=== PATIENT | female | born 1975 | race Caucasian/White ===

== ENCOUNTER → 2020-10-11 13:34 | Outpatient (BNVA) | payer SELFPAY | PROVIDERS: PCP Family Medicine; Referring Provider Family Medicine; Visit Provider Nurse Practitioner Family | DX: N39.9 Disorder of urinary system, unspecified (principal); R31.9 Hematuria, unspecified; R31.21 Asymptomatic microscopic hematuria; R31.29 Other microscopic hematuria; N39.0 Urinary tract infection, site not specified; Z20.822 Contact with and (suspected) exposure to COVID-19 | CPT/HCPCS: 81003; 87086; 87635; 88112 ==

== ENCOUNTER 2020-10-18 06:28 | Day surgery (SDC) | payer SELFPAY ==
[2020-10-15 10:48] VITALS: BMI 27.4
[2020-10-18 06:46] VITALS: BP 102/79; PULSE 68; RESP 18; TEMP 36.2; O2SAT 98
[2020-10-18] MEDS: sodium chloride 0.9% 1,000 ML 30 ML IV (06:54)
[2020-10-18 07:12] LABS: OR HCG Qualitative Urine Negative (Negative)
--- NOTE | 2020-10-18 07:17 | W.PM.OPSUD ---
Surgery/Procedure H&P Update DATE OF PROCEDURE: October 18, 2020 DATE H&P PERFORMED: 09/24/20 H&P UPDATE INFORMATION: I have reviewed H&P completed within last 30 days, I have examined patient prior to procedure and No changes to prior documentation PREOP DIAGNOSIS: Family history of colon cancer/occult blood in stool PRIMARY INDICATION FOR PROCEDURE: The same PLANNED PROCEDURE: Operation Date: 10/18/20 07:30 Proposed Procedures p EGD/colon 07414 [id number] R19.5 K21.9(Not Applicable) - Enrique Pedroza MD s Colonoscopy(Not Applicable) - Enrique Pedroza MD
--- NOTE | 2020-10-18 07:19 | ANES.PREANE2 ---
Pre-Anesthetic Assessment Pre-Anesthetic Assessment: Height/Weight: Height 1.65 m Weight 74.843 kg Temp Pulse Resp BP Pulse Ox 97.1 F L 68 18 102/79 98 10/18/20 06:46 10/18/20 06:46 10/18/20 06:46 10/18/20 06:46 10/18/20 06:46 Preop Diagnosis: Family history of colon cancer/occult blood in stool Proposed Procedure: Operation Date: 10/18/20 07:30 Proposed Procedures p EGD/colon [id number] R19.5 K21.9(Not Applicable) - Enrique Pedroza MD s Colonoscopy(Not Applicable) - Enrique Pedroza MD Last intake: Intake Last Liquid Date 10/17/20 Last Liquid Time 23:00 Last Solid Date 10/16/20 Last Solid Time 19:00 Social: Social History: Tobacco Packs per day: 1 Exam: Pre-Anes Outpt Exam: alert and oriented x 3 Pulmonary: Pulmonary: None reported CV/HEM: CV/HEM: Anemia : Comments: kidney tumor Hepatic: Hepatic: None reported GI: GI: GERD Metabolic: Metabolic: Morbid obesity Musc/skel: Musc/skel: None reported Neuropsych: Neuropsych: Anxiety Anesthetic Plan: ASA status: 2 Anesthesia: MAC Risk of > 500 ml blood loss (7ml/kg in children): No Meds/Allergies Current Medications: Current Medications Generic Name Dose Route Start Last Admin Trade Name Freq PRN Reason Stop Dose Admin Sodium Chloride 1,000 mls @ 30 ml s/hr 10/18/20 06:45 10/18/20 06:54 Sodium Chloride 0.9% IV 10/19/20 06:44 30 mls/hr .Q24H ESTHER Administration PFSH Anesthesia PFSH: Medical History Microscopic hematuria Recurrent UTI Family History Mother Hypertension Alcoholism Diabetes Father Alcoholism Sister Alcoholism Grandfather Cancer colon cancer Denies family history of Anesthesia complication Bleeding disorder Social History Smoking and tobacco status: current every day smoker cigarettes Packs smoked per day: 1 Years cigarettes smoked: 30 Alcohol intake: never Marital status: Legally Current occupational status: unemployed History of recent travel: No Data Anesthesia Other Labs: Laboratory Results - last 48 hr 10/18/20 07:05 Urine HCG, Qual Negative Cardiac Studies: No Data to Display
[2020-10-18 08:06] VITALS: BP 96/90; PULSE 73; RESP 18; TEMP 36.1; O2SAT 99
[2020-10-18 08:18] VITALS: BP 105/71; PULSE 68; RESP 18; O2SAT 99
--- NOTE | 2020-10-18 10:39 | ANES.PREANE2 ---
Pre-Anesthetic Assessment Pre-Anesthetic Assessment: Height/Weight: Height 1.65 m Weight 74.843 kg Temp Pulse Resp BP Pulse Ox 97.0 F L 68 18 105/71 99 10/18/20 08:06 10/18/20 08:18 10/18/20 08:18 10/18/20 08:18 10/18/20 08:18 Preop Diagnosis: Family history of colon cancer/occult blood in stool Proposed Procedure: Operation Date: 10/18/20 07:30 Proposed Procedures p EGD/colon [id number] R19.5 K21.9(Not Applicable) - Enrique Pedroza MD s Colonoscopy(Not Applicable) - Enrique Pedroza MD Last intake: Intake Last Liquid Date 10/17/20 Last Liquid Time 23:00 Last Solid Date 10/16/20 Last Solid Time 19:00 Social: Social History: Tobacco and No alcohol Exam: Pre-Anes Outpt Exam: alert and oriented x 3 Airway: Submandibular: WNL Cervical ROM: WNL MP: 1 History/ROS: No significant history except as noted GI: GI: GERD Anesthetic Plan: ASA status: 2 Anesthesia: Anesthesia Evaluation and MAC Risk of > 500 ml blood loss (7ml/kg in children): No PFSH Anesthesia PFSH: Medical History (Updated 10/18/20 @ 08:06 by Enrique Pedroza MD) Colon polyp Microscopic hematuria Recurrent UTI Family History Mother Hypertension Alcoholism Diabetes Father Alcoholism Sister Alcoholism Grandfather Cancer colon cancer Denies family history of Anesthesia complication Bleeding disorder Social History Smoking and tobacco status: current every day smoker cigarettes Packs smoked per day: 1 Years cigarettes smoked: 30 Alcohol intake: never Marital status: Legally Current occupational status: unemployed History of recent travel: No Data Anesthesia Other Labs: Laboratory Results - last 48 hr 10/18/20 07:05 Urine HCG, Qual Negative Cardiac Studies: No Data to Display
--- NOTE | 2020-10-18 13:09 | ANE.PACU2 ---
Inpatient post-anesthesia follow up: Airway intact: Yes Vital signs: Temperature 97.0 F Pulse Rate 68 Respiratory Rate 18 Blood Pressure 105/71 Pulse Oximetry 99 Oxygen Delivery Me thod Room Air Oxygen Flow Rate Fraction of Inspir ed Oxygen Hydration adequate: Yes Nausea and vomiting: No Pain level: 1 Mental status: Baseline
[2020-10-19 14:43] LABS: H. Pylori / CLO Test Negative
== END 2020-10-18 08:32 | disposition home or self-care (01) ==
PROVIDERS: PCP Family Medicine; Visit Provider Surgery
PROC: 0DJD8ZZ Inspection of Lower Intestinal Tract, Via Natural or Artificial Opening Endoscopic (ICD-10-PCS; CPT 45378; 2020-10-18 07:30)
PROC: 0DJ08ZZ Inspection of Upper Intestinal Tract, Via Natural or Artificial Opening Endoscopic (ICD-10-PCS; CPT 43235; 2020-10-18 07:30)
DX: K92.1 Melena (principal); Z80.0 Family history of malignant neoplasm of digestive organs; K21.00 Gastro-esophageal reflux disease with esophagitis, without bleeding; K29.70 Gastritis, unspecified, without bleeding; K29.80 Duodenitis without bleeding; D12.2 Benign neoplasm of ascending colon; F17.210 Nicotine dependence, cigarettes, uncomplicated; D64.9 Anemia, unspecified
CPT/HCPCS: 43239; 45385; 81025; 84703; 87077; 88305; 96360; J2704; J7030

== ENCOUNTER 2020-10-24 09:01 | Outpatient (CLI) | payer SELFPAY ==
[2020-10-24] MEDS: iodixanol 320 mg/mL 100mL Btl IV (09:30)
--- NOTE | 2020-10-24 10:30 | CT_ITS ---
WS: [id number] CT ABDOMEN AND PELVIS WITH AND WITHOUT CONTRAST HISTORY: MICROSCOPIC HEMATURIA TECHNIQUE: Unenhanced 5 mm axial imaging first performed through the abdomen. Post contrast imaging t hrough the abdomen and pelvis. Oral contrast has not been provided. Sagittal and coronal reformats a re submitted. All CT scans at [facility] use at least one of these dose optimization tech niques: automated exposure control; mA and/or kV adjustment per patient size (includes targeted exams where dose is matched to clinical indication); or iterative reconstruction. CONTRAST: Visipaque 320; 95 mL IV. DLP: 2412.8 mGy.cm COMPARISON: None available. Lung bases are clear. No cardiomegaly or hiatal hernia. Mild hepatomegaly. Liver measures 16.6 cm in length. No mass or bile duct dilatation. Gallbladder con tains foci suspicious for cholelithiasis. Spleen, pancreas and adrenal glands are normal. Very minima l atherosclerosis within the aorta. RIGHT kidney: 9.1 cm in length. Multifocal areas of cortical thinning and scarring. 2 mm nonobstructi ng calcification in the superior kidney and an area of scarring. No renal obstruction or solid mass. Ureter is normal size. No uroepithelial filling defects. LEFT kidney: 11.2 cm in length. No renal calcification or obstruction. No solid mass. No uroepithelia l filling defect. No ascites or adenopathy. The appendix is normal. No GI tract obstruction. Normal size anteverted [place]. Urinary bladder is well-distended on delayed imaging with no filling defects. Mild diastases of the rectus abdominis muscles. No osteoblastic or osteolytic bone disease. CT/CT abdomen pelvis wo/w [id number] IMPRESSION: 1. No renal or ureteral calcifications or obstruction. No renal mass. 2. Multifocal areas of scarring and cortical defects involving the RIGHT kidne y with mild atrophy. 3. Normal appendix. 4. Mild hepatic steatosis. 5. Suspicious for cholelithiasis without acute cholecystitis.
== END 2020-10-24 09:02 | disposition home or self-care (01) ==
LOC: CT 09:04
PROVIDERS: PCP Family Medicine; Visit Provider Nurse Practitioner Family
DX: R31.29 Other microscopic hematuria (principal); K76.0 Fatty (change of) liver, not elsewhere classified
CPT/HCPCS: 74178; 81003

== ENCOUNTER 2020-11-06 16:24 | Inpatient (IN) | payer OTHER, SELFPAY ==
[2020-11-06] VITALS (59 sets, daily range): BP systolic 91–144; BP diastolic 55–93; PULSE 69–122; RESP 19–28; TEMP 37.1; O2SAT 89–96; BMI 28.3
--- NOTE | 2020-11-06 16:33 | XRR_ITS ---
PROCEDURE INFORMATION: Exam: XR Chest Exam date and time: 11/06/2020 4:39 PM Age: 45 years old Clinical indication: Dyspnea and shortness of breath; Additional info: Dyspnea/cough TECHNIQUE: Imaging protocol: XR of the chest. Views: 1 view. COMPARISON: No relevant prior studies available. FINDINGS: Lungs: Diffuse reticulonodular interstitial changes and scattered alveolar ground-glass opacities are nonspecific. Pleural spaces: Unremarkable. No pleural effusion. No pneumothorax. Heart/Mediastinum: Unremarkable. No cardiomegaly. Bones/joints: Unremarkable. XR/XR chest 1V portable [id number] IMPRESSION: Widespread nonspecific airspace disease. Atypical pneumonia included in the differential.
--- NOTE | 2020-11-06 16:35 | ED_ITS ---
HPI - SOB/Dyspnea General: Chief Complaint: Shortness of Breath/Dyspnea Stated Complaint: Trouble Breathing Time Seen by Provider: 11/06/20 16:25 History of Present Illness: HPI Narrative: 45-year-old female comes in complaining of shortness of breath and chest pain. She is hyperventilating on arrival here. She is complaining of central chest pain substernal without radiation. She tells me she has actually had this for several days ago worse this afternoon. She had been treated at per her report with steroids and antibiotics with no improvement but it has not been like this prior. No leg swelling no recent long trips no history of DVT or PE. MD elicited complaint: shortness of breath, cough and chest pain Pertinent past history: COPD Onset (ago): day(s) Timing: constant Severity: moderate Exacerbating factors: exertion and coughing Relieving factors: oxygen, rest and bronchodilators Known history of: COPD Associated symptoms: Reports chest congestion and chest pain; Deny abdominal pain, cough, diaphoresis, dizziness, extremity pain, fever(s), hemoptysis, lightheadedness, myalgias, nausea, orthopnea, palpitations, paresthesias, polydipsia, polyuria, rash, sense of impending doom, syncope or vomiting Treatment prior to arrival: oxygen and bronchodilator Review of Systems Const: Denies: fever(s) or diaphoresis ENMT: Denies: throat pain, ear or mastoid pain, nasal discharge or nasal congestion Card: Reports: chest pain; Denies: palpitations, lightheadedness, syncope or orthopnea Resp: Reports: chest congestion; Denies: hemoptysis GI: Denies: abdominal pain, nausea or vomiting : Denies: flank pain, difficulty voiding, dysuria, urinary frequency or urinary urgency Musc: Denies: extremity pain Skin/Breast: Denies: rash or pruritus Neuro: Denies: dizziness Endo: Denies: polyuria or polydipsia PFSH ED PFSH: Medical History Colon polyp Gastritis and duodenitis Microscopic hematuria Recurrent UTI Family History Mother Hypertension Alcoholism Diabetes Father Alcoholism Sister Alcoholism Grandfather Cancer colon cancer Denies family history of Anesthesia complication Bleeding disorder Social History Smoking and tobacco status: current every day smoker cigarettes Packs smoked per day: 1 Years cigarettes smoked: 30 Alcohol intake: never Marital status: Legally Current occupational status: unemployed History of recent travel: No Physical Exam Const: COMMON NORMALS: no acute distress GENERAL APPEARANCE: cooperative and comfortable ORIENTATION/CONSCIOUSNESS: Yes awake, Yes oriented to person, Yes oriented to place and Yes oriented to time HENMT: COMMON NORMALS: normocephalic, atraumatic and hearing grossly normal bilaterally HEAD & SCALP: normocephalic and atraumatic Eye: COMMON NORMALS: Equal, round and reactive pupils present, EOMs intact bilaterally, conjunctivae normal and no scleral icterus CONJUNCTIVA: Yes conjunctivae normal PUPIL: Yes Equal, round and reactive pupils present Neck/C-Spine: COMMON NORMALS: full ROM, no lymphadenopathy, supple and no JVD Resp: COMMON NORMALS: normal respiratory effort, No retractions, No use of accessory muscles and clear to auscultation bilaterally AUSCULTATION: clear to auscultation bilaterally Cardio: COMMON NORMALS: no JVD, regular rate, regular rhythm and No murmurs present (Cardio) RATE: regular rate RHYTHM: regular rhythm GI: COMMON NORMALS: Soft to palpation and No hepatosplenomegaly present AUSCULTATION: Yes normoactive bowel sounds PALPATION: Yes Soft to palpation, No Tenderness to palpation present (GI), No Guarding due to palpation present (GI) and Yes No hepatosplenomegaly present Extremity: COMMON NORMALS: normal to inspection, capillary refill normal, no clubbing, cyanosis or edema, no calf tenderness and no pedal edema Neuro: SENSORIUM/ORIENTATION: Yes oriented to person, Yes oriented to place and Yes oriented to time Skin: COMMON NORMALS: no rashes or lesions noted GENERAL SKIN EXAM: no rashes or lesions noted Course Vital Signs: Vital signs: Vital Signs Temperature 99.4 F 11/09/20 16:00 Pulse Rate 88 11/09/20 16:00 Respiratory Rate 20 H 11/09/20 16:00 Blood Pressure 116/71 11/09/20 16:00 Pulse Oximetry 85 L 11/09/20 16:00 MDM - SOB/Dyspnea MDM Narrative: Medical decision making narrative: Exacerbation COPD with pneumonia. Will start on antibiotics admit pulmonary toilet discussed with hospitalist. Lab Data: Labs: Lab Results 11/06/20 11/06/20 11/06/20 Range/Units 16:40 16:40 16:40 WBC 17.0 H (4.0-10.0) 10^3/ uL RBC 4.61 (4.1-5.3) 10^6/u L Hgb 12.8 (11.5-15.3) g/dL Hct 39.5 (37.0-47.0) % MCV 85.7 (81-99) fL MCH 27.8 L (28.0-34.0) pg MCHC 32.4 (30.0-36.0) g/dL RDW 12.7 (12.1-15.1) % Plt Count 499 H (130-400) 10^3/c mm MPV 9.3 (7.4-10.4) fL Neut % (Auto) 82.0 % Lymph % (Auto) 9.9 % [place] % (Auto) 7.4 % Eos % (Auto) 0.1 % Baso % (Auto) 0.2 % Neut # (Auto) 13.93 H (1.8-7.7) 10^3/u L Lymph # (Auto) 1.7 (0.8-4.8) 10^3/u L [place] # (Auto) 1.3 H (0.2-0.9) 10^3/u L Eos # (Auto) 0.0 (0.0-0.8) 10^3/u L Baso # (Auto) 0.0 (0.0-0.1) 10^3/u L Nucleated RBC % (a uto) 0 % Nucleated RBCs # 0.0 /100WBC Specimen Type Sample Site ABG pH (7.35-7.45) ABG pCO2 (35-45) mmHg ABG pO2 (80.0-100.0) mmH g ABG HCO3 (22-26) mmol/L ABG O2 Saturation ABG Base Excess (-2.0-2.0) mmol/ L Deznel Test A-a O2 Gradient (5-10) mmHg Hematocrit (37-47) % Hgb O2 Saturation (95-100) % Carboxyhemoglobin (0.4-20.1) %THgb Methemoglobin (0.4-1.5) % Total Hemoglobin (12-16) g/dL Ionized Calcium (1.1-1.4) mmol/L O2 Delivery Device O2 Liters/Min % FiO2 % Display Director ID Sodium 129 L (136-145) mmol/L Potassium 4.0 (3.5-5.1) mmol/L Chloride 94 L (98-107) mmol/L Carbon Dioxide 20 L (22-29) mmol/L Anion Gap 19.0 (5-19) BUN 6 (6-20) mg/dL Creatinine 0.9 (0.5-0.9) mg/dL GFR Calculation 67.1 L (90-130) mL/min Glucose 148 H (65-115) mg/dL Calculated Osmolal ity 268 L (285-295) mOsm/k g Calcium 8.5 (8.5-10.5) mg/dL Total Bilirubin 0.4 (0.15-1.2) mg/dL AST 39 H (0-32) U/L ALT 38 H (0-33) U/L Alkaline Phosphata se 132 H (35-105) IU/L Troponin T Baselin e 8 (0-10) ng/L Total Protein 6.9 (6.6-8.7) g/dL Albumin 3.7 (3.5-5.2) g/dL Globulin 3.2 (1.3-4.6) g/dL Urine Color (Yellow) Urine Appearance (CLEAR) Urine pH (5-7) Ur Specific Gravit y (1.005-1.030) Urine Protein (Negative) Urine Glucose (UA) (Normal) Urine Ketones (Negative) Urine Blood (Negative) Urine Nitrate (Negative) Urine Bilirubin (Negative) Urine Urobilinogen (Negative) mg/dL Ur Leukocyte Maile ase (Negative) Urine RBC (0-2) /hpf Urine WBC (0-5) /hpf Ur Squamous Epith Cells (0-5) /hpf Amorphous Sediment Urine Bacteria (NONE) /hpf SARS-CoV-2 Ag (Rap id) (Negative) 11/06/20 11/06/20 11/06/20 Range/Units 17:13 17:21 18:01 WBC (4.0-10.0) 10^3/ uL RBC (4.1-5.3) 10^6/u L Hgb (11.5-15.3) g/dL Hct (37.0-47.0) % MCV (81-99) fL MCH (28.0-34.0) pg MCHC (30.0-36.0) g/dL RDW (12.1-15.1) % Plt Count (130-400) 10^3/c mm MPV (7.4-10.4) fL Neut % (Auto) % Lymph % (Auto) % [place] % (Auto) % Eos % (Auto) % Baso % (Auto) % Neut # (Auto) (1.8-7.7) 10^3/u L Lymph # (Auto) (0.8-4.8) 10^3/u L [place] # (Auto) (0.2-0.9) 10^3/u L Eos # (Auto) (0.0-0.8) 10^3/u L Baso # (Auto) (0.0-0.1) 10^3/u L Nucleated RBC % (a uto) % Nucleated RBCs # /100WBC Specimen Type Arterial Sample Site Radial, right ABG pH 7.38 (7.35-7.45) ABG pCO2 40.5 (35-45) mmHg ABG pO2 68.8 L (80.0-100.0) mmH g ABG HCO3 23.8 (22-26) mmol/L ABG O2 Saturation 94.1 ABG Base Excess -1.3 (-2.0-2.0) mmol/ L Denzel Test Pos A-a O2 Gradient 18.1 H (5-10) mmHg Hematocrit 38.3 (37-47) % Hgb O2 Saturation 90.8 L (95-100) % Carboxyhemoglobin 2.5 (0.4-20.1) %THgb Methemoglobin 1.1 (0.4-1.5) % Total Hemoglobin 12.5 (12-16) g/dL Ionized Calcium 1.2 (1.1-1.4) mmol/L O2 Delivery Device Nc O2 Liters/Min 4.0 % FiO2 36.0 % Display Director ID Ed Sodium 130.0 L (136-145) mmol/L Potassium 3.7 (3.5-5.1) mmol/L Chloride (98-107) mmol/L Carbon Dioxide (22-29) mmol/L Anion Gap (5-19) BUN (6-20) mg/dL Creatinine (0.5-0.9) mg/dL GFR Calculation (90-130) mL/min Glucose 103.0 (65-115) mg/dL Calculated Osmolal ity (285-295) mOsm/k g Calcium (8.5-10.5) mg/dL Total Bilirubin (0.15-1.2) mg/dL AST (0-32) U/L ALT (0-33) U/L Alkaline Phosphata se (35-105) IU/L Troponin T Baselin e (0-10) ng/L Total Protein (6.6-8.7) g/dL Albumin (3.5-5.2) g/dL Globulin (1.3-4.6) g/dL Urine Color Yellow (Yellow) Urine Appearance Clear (CLEAR) Urine pH 6.5 (5-7) Ur Specific Gravit y 1.000 L (1.005-1.030) Urine Protein Trace (Negative) Urine Glucose (UA) Norm (Normal) Urine Ketones Negative (Negative) Urine Blood 2+ H (Negative) Urine Nitrate Negative (Negative) Urine Bilirubin Neg (Negative) Urine Urobilinogen 1 H (Negative) mg/dL Ur Leukocyte Maile ase Negative (Negative) Urine RBC 5-10 H (0-2) /hpf Urine WBC 0-4 H (0-5) /hpf Ur Squamous Epith Cells 0-4 H (0-5) /hpf Amorphous Sediment Not Reportable Urine Bacteria Trace (NONE) /hpf SARS-CoV-2 Ag (Rap id) Negative (Negative) Discharge Plan Discharge Admit Provider: Charlie Tyler Clinical Impression: Pneumonia, Respiratory failure with hypoxia Condition: Stable Coding Level of Care Code ED Physician Compensation Analyst for Chikis Henning
--- NOTE | 2020-11-06 16:37 | CTR_ITS ---
PROCEDURE INFORMATION: Exam: CTA Chest With Contrast Exam date and time: 11/06/2020 4:50 PM Age: 45 years old Clinical indication: Shortness of breath; Patient HX: Best images possible. PT won't stop coughing, thrashing her legs and talking. ; Additional info: Chest pain dyspnea TECHNIQUE: Imaging protocol: Computed tomographic angiography of the chest with contrast. 3D rendering (Not supervised by radiologist): MIP and/or 3D reconstructed images were created by the technologist. Radiation optimization: All CT scans at this facility use at least one of these dose optimization techniques: automated exposure control; mA and/or kV adjustment per patient size (includes targeted exams where dose is matched to clinical indication); or iterative reconstruction. Contrast material: VISI 320; Contrast volume: 95 ml; Contrast route: INTRAVENOUS (IV); COMPARISON: CR XR chest 1V portable [id number] 11/06/2020 4:37 PM RADIATION DOSE METRICS: Total DLP (mGy-cm): 569.6 FINDINGS: Limitations: Extensive motion distortion artifact precludes adequate assessment of the pulmonary arteries. Cannot accurately evaluate arteries in the lobar, segmental, subsegmental areas. Pulmonary arteries: There is no thrombus in the main pulmonary artery, left or right pulmonary artery but otherwise nondiagnostic evaluation. Aorta: Unremarkable. No aortic aneurysm. No aortic dissection. Lungs: Extensive irregular scattered ground-glass airspace opacities in both lungs mostly central in distribution, however some subpleural involvement is noted peripherally. No focal endobronchial lesion. No bronchial wall thickening. Pleural spaces: Unremarkable. No pneumothorax. No pleural effusion. Heart: Unremarkable. No cardiomegaly. No pericardial effusion. Lymph nodes: Unremarkable. No enlarged lymph nodes. Bones/joints: Limited characterization of osseous structures with no obvious acute findings or suspicious bone lesion. Soft tissues: Unremarkable. CT/CT angio chest PE protcl [id number] IMPRESSION: 1. Very suboptimal, mostly nondiagnostic characterization of pulmonary arteries. 2. No obvious central pulmonary embolism. 3. Scattered ground-glass airspace disease in both lungs. Nonspecific pattern and distribution. Differential diagnosis is broad. 4. Imaging features can be seen with COVID-19 pneumonia, though are nonspecific and can occur with a variety of infectious and noninfectious processes. (Reference: Federico) REFERENCES: Federico Blanchard, et al., Radiological Society of [place] Expert Consensus Statement on Reporting Chest CT Findings Related to COVID-19. Endorsed by the Society of Thoracic Radiology, the [place] [employer], and RSNA. Published September 21, 2019. Radiation Dose CTDIVOL = (mGy): DLP = 569.6 (mGy-cm)
--- NOTE | 2020-11-06 16:38 | ECG_ITS ---
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 Measurements Intervals [place] Rate: 114 P: 52 SD: 135 QRS: 55 QRSD: 78 T: 70 QT: 294 QTc: 405 Interpretive Statements SINUS TACHYCARDIA POSSIBLE RIGHT VENTRICULAR CONDUCTION DELAY [RSR (QR) IN V1/V2] ABNORMAL RHYTHM ECG No previous ECG available for comparison Electronically Signed On 11-06-2020 19:23:38 CDT by Suhas Solis M.D. [email or web address]
[2020-11-06 16:48] LABS: Basophils % 0.2 %; Eosinophils % 0.1 %; Hematocrit 39.5 % (37.0-47.0); Hemoglobin 12.8 g/dL (11.5-15.3); Lymphocytes # 1.7 10^3/uL (0.8-4.8); Lymphocytes % 9.9 %; Mean Corpuscular HGB Conc 32.4 g/dL (30.0-36.0); Mean Corpuscular Hemoglobin 27.8 pg (28.0-34.0); Mean Corpuscular Volume 85.7 fL (81-99); Mean Platelet Volume 9.3 fL (7.4-10.4); Monocytes # 1.3 10^3/uL (0.2-0.9); Monocytes % 7.4 %; Neutrophils # 13.93 10^3/uL (1.8-7.7); Nucleated Red Blood Cells % 0 %; Platelet Count 499 10^3/cmm (130-400); Red Blood Count 4.61 10^6/uL (4.1-5.3); Red Cell Distribution Width 12.7 % (12.1-15.1)
[2020-11-06] MEDS: morphine 4 mg/mL SDV 1 mL IVP (16:51)
[2020-11-06] MEDS: LORazepam 2 mg/mL INJ 1 mL IVP (16:52)
[2020-11-06] MEDS: enoxaparin 80 mg/0.8 mL Syringe 70 MG SUBCUT (16:52)
[2020-11-06] MEDS: iohexol 350 mg/mL 100 mL Btl IV (17:08)
[2020-11-06 17:23] LABS: ABG PCO2 40.5 mmHg (35-45); ABG PH Result 7.38 (7.35-7.45); Alveolar-Arterial Oxygen Gradi 18.1 mmHg (5-10); Arterial Blood Gas Hematocrit 38.3 % (37-47); Base Excess ABG -1.3 mmol/L (-2.0-2.0); Blood Gas Allen Test Pos; Blood Gas Operator Identificat ED; Blood Gas Sample Site Radial, right; Blood Gas Sample Type Arterial; Carboxyhemoglobin 2.5 %THgb (0.4-20.1); HCO3 ABG 23.8 mmol/L (22-26); HGB O2 Sat 90.8 % (95-100); Ionized Calcium Level - ABG 1.2 mmol/L (1.1-1.4); Methemoglobin 1.1 % (0.4-1.5); Oxygen Device NC; Oxygen Saturation ABG 94.1; PO2 ABG 68.8 mmHg (80.0-100.0); Potassium Level - ABG 3.7 mmol/L (3.5-5.0); Total Hemoglobin 12.5 g/dL (12-16)
[2020-11-06 17:52] LABS: Alanine Aminotransferase 38 U/L (0-33); Albumin Level 3.7 g/dL (3.5-5.2); Alkaline Phosphatase 132 IU/L (35-105); Aspartate Amino Transferase 39 U/L (0-32); Blood Urea Nitrogen 6 mg/dL (6-20); Calcium 8.5 mg/dL (8.5-10.5); Carbon Dioxide 20 mmol/L (22-29); Chloride 94 mmol/L (98-107); Globulin 3.2 g/dL (1.3-4.6); Glomerular Filtration Rate 67.1 mL/min (90-130); Glucose 148 mg/dL (65-115); Osmolality Calculated 268 mOsm/kg (285-295); Sodium 129 mmol/L (136-145); Total Bilirubin 0.4 mg/dL (0.15-1.2); Total Protein 6.9 g/dL (6.6-8.7)
[2020-11-06 17:53] LABS: SARS Covid-2 Antigen Negative (Negative)
[2020-11-06 17:53] LABS: Troponin(5th) Baseline 8 ng/L (0-10)
[2020-11-06] MEDS: cefTRIAXone 2,000 MG in sodium chloride 0.9% (plus) 50 ML 100 MG IV (18:09)
[2020-11-06] MEDS: dexamethasone 10 mg/mL INJ IVP (18:12)
[2020-11-06 18:25] LABS: Urine Appearance Clear (CLEAR); Urine Color Yellow (Yellow)
[2020-11-06 18:26] LABS: Add Urine Microscopic? YES; Bacteria Urine TRACE /hpf; Bilirubin Urine Neg (Negative); Blood Urine 2+ (Negative); Glucose Urine UA Norm (Normal); Ketones Urine Negative (Negative); Leukocyte Esterase Urine Negative (Negative); Nitrate Urine Negative (Negative); Protein Urine Trace (Negative); Squamous Epithelial Cell Urine 0-4 /hpf (0-5); Urobilinogen Urine 1 mg/dL (Negative); WBC Urine 0-4 /hpf (0-5); pH Urine 6.5 (5-7)
--- NOTE | 2020-11-06 18:31 | P.HP_ITS ---
Providers/Chief Complaint Admitting Physician: Charlie Tyler MD Primary Care Provider: Rodolfo Pena MD Chief Complaint: Trouble Breathing History of Present Illness Camila Menendez is a 45 year old female with no significant past medical history came in with chief complaint of worsening shortness of breath as well as central substernal chest pain without radiation going on for several days, history taking was done by ER chart review, as the patient was deeply sedated since he had gotten Ativan as well as morphine in the ER. Upon arrival in the ER: She was worked up for above-mentioned complaint: Imaging studies: CTA chest with contrast: No pulmonary embolism, Scattered ground-glass airspace disease in both lungs. EKG: SINUS TACHYCARDIA. ABG: pH:7.38, PCO2: 40, PO2 : 68, FiO2:36 % Pertinent labs: WBC:17 thousand, H&H:12/39, platelet count:499 , serum sodium:129, lactic acid:1.8 , Troponin T: Baseline:8 , 2-hour:7.17, 2-hour delta: -0.83 , urinalysis: Clean, U tox: Pending Rapid Covid antigen: Negative, RT-PCR: Was negative on 10/11 ECA medications: Ceftriaxone and azithromycin, dexamethasone 10 mg IV one-time dose. Lovenox 70 mg subcu x1 dose Review of Systems Narrative: Could not be obtained Medications/Allergies Home Medications Medication Instructions Recorded Confirmed Last Taken Type pantoprazole 40 mg tablet,delayed 40 mg PO QAM 09/24/20 11/06/20 11/06/20 07:30 History release hydroxyzine pamoate 25 mg capsule 25 mg PO Q4H PRN 10/24/20 11/06/20 Unknown History sulfamethoxazole 800 1 tab PO BID #28 tab 10/24/20 11/06/20 11/06/20 07:30 Rx mg-trimethoprim 160 mg tablet gabapentin 300 mg capsule 600 mg PO TID cap 10/25/20 11/06/20 11/06/20 07:30 History Dayquil Tab 1 - 2 tab PO PRN 11/06/20 11/06/20 Unknown History albuterol sulfate [ProAir HFA] 2 puff INHALATION Q4H PRN 11/06/20 11/06/20 11/06/20 History fluoxetine 40 mg PO QAM 11/06/20 11/06/2011/06/21 07:30 History Allergies Allergy/AdvReac Type Severity Reaction Status Date / Time hydrocodone AdvReac VOMITING Verified 11/06/20 16:46 PFSH Acute PFSH: Medical History Colon polyp Gastritis and duodenitis Microscopic hematuria Recurrent UTI Family History Mother Hypertension Alcoholism Diabetes Father Alcoholism Sister Alcoholism Grandfather Cancer colon cancer Denies family history of Anesthesia complication Bleeding disorder Social History Smoking and tobacco status: current every day smoker cigarettes Packs smoked per day: 1 Years cigarettes smoked: 30 Alcohol intake: never Marital status: Legally Current occupational status: unemployed History of recent travel: No Vitals/I&O/Wt Last Vital Signs Pulse 92 11/06/20 18:22 Resp 21 H 11/06/20 18:22 BP 112/70 11/06/20 18:22 Pulse Ox 90 11/06/20 18:22 Weight last 48 hrs Weight 74.843 kg Physical Exam HENMT: COMMON NORMALS: normocephalic and atraumatic HEAD & SCALP: normocephalic and atraumatic Resp: COMMON NORMALS: clear to auscultation bilaterally AUSCULTATION: clear to auscultation bilaterally Cardio: COMMON NORMALS: regular rate, regular rhythm, S1 normal heart sound present, S2 normal heart sound present, No gallops present (Cardio), No murmurs present (Cardio), No rub (Cardio) and Peripheral pulses 2+ throughout RATE: regular rate RHYTHM: regular rhythm HEART SOUNDS: S1 normal heart sound present and S2 normal heart sound present PERIPHERAL PULSES: Peripheral pulses 2+ throughout GI: COMMON NORMALS: Normal to inspection, nondistended, normoactive bowel sounds present, Soft to palpation, non-tender, No hepatosplenomegaly present and no masses AUSCULTATION: Yes normoactive bowel sounds PALPATION: Yes Soft to palpation and Yes No hepatosplenomegaly present RECTAL EXAM: deferred Extremity: COMMON NORMALS: no clubbing, cyanosis or edema and no pedal edema Data : 11/06/20 16:40 11/06/20 16:40 A&P Assessment and plan (1) Pneumonia: Follow blood culture Follow urine Legionella antigen Follow urine bacterial antigen panel Follow-up Covid PCR 2D echo Procalcitonin Monitor serial x-ray chest Vancomycin Zosyn Status: Acute (2) Respiratory failure with hypoxia: Respiratory failure with hypoxia secondary to pneumonia Plan is 1 Status: Acute (3) Thrombocytosis: Reactive thrombocytosis Status: Acute (4) Hyponatremia: Hypovolemic hyponatremia Gentle IV hydration Status: Acute (5) Transaminitis: Likely secondary to dehydration 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 Anticipated length of stay greater than 2 midnight. 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
--- NOTE | 2020-11-06 18:38 | ECG_ITS ---
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 Measurements Intervals Rogers Rate: 92 P: 52 MN: 149 QRS: 41 QRSD: 69 T: 53 QT: 358 QTc: 444 Interpretive Statements SINUS RHYTHM POSSIBLE LEFT ATRIAL ENLARGEMENT [-0.1mV P WAVE IN V1/V2] Compared to ECG 11/06/2020 16:49:17 Sinus tachycardia no longer present Electronically Signed On 11-07-2020 18:28:28 CDT by Shandra Torres M.D. [email or web address] Corporation[id number]
[2020-11-06 19:10] LABS: Lactic Sepsis W/Reflex 1.8 mmol/L (0.5-2.2)
[2020-11-06 19:14] LABS: Troponin 5 2HR 7.17 ng/L (0-10); Troponin 5 2HR Delta -0.83 ABS# (0-10)
[2020-11-06] MEDS: azithromycin 500 MG in sodium chloride 0.9% 250 ML 250 MG IV (19:29)
[2020-11-06] MEDS: vancomycin 1,250 MG/250 ML PIGGYBACK 250 MG IV (19:29)
[2020-11-06] MEDS: piperacillin-tazobactam 3.375 GM in sodium chloride 0.9% (plus) 50 ML IV (19:30)
[2020-11-06] MEDS: dexmedetomidine 400 MCG in sodium chloride 0.9% (100 ml) 100 ML IV (19:53)
[2020-11-06 20:26] LABS: D Dimer 0.51 ug/mIFEU (0-0.59)
[2020-11-06] MEDS: sodium chloride 0.9% 1,000 ML 50 ML IV (20:28)
[2020-11-07] VITALS (161 sets, daily range): BP systolic 80–123; BP diastolic 33–78; PULSE 56–94; RESP 12–34; TEMP 36.6–37.2; O2SAT 90–100
[2020-11-07] MEDS: piperacillin-tazobactam 3.375 GM in sodium chloride 0.9% (plus) 50 ML IV ×3 (03:56→21:35)
[2020-11-07 05:41] LABS: Basophils % 0.2 %; Hematocrit 39.2 % (37.0-47.0); Hemoglobin 12.5 g/dL (11.5-15.3); Lymphocytes # 0.8 10^3/uL (0.8-4.8); Lymphocytes % 6.9 %; Mean Corpuscular HGB Conc 31.9 g/dL (30.0-36.0); Mean Corpuscular Hemoglobin 27.7 pg (28.0-34.0); Mean Corpuscular Volume 86.7 fL (81-99); Mean Platelet Volume 9.9 fL (7.4-10.4); Monocytes # 0.2 10^3/uL (0.2-0.9); Monocytes % 1.5 %; Neutrophils # 11.01 10^3/uL (1.8-7.7); Neutrophils % 91.1 %; Nucleated Red Blood Cells % 0 %; Platelet Count 423 10^3/cmm (130-400); Red Blood Count 4.52 10^6/uL (4.1-5.3); Red Cell Distribution Width 12.5 % (12.1-15.1); White Blood Count 12.1 10^3/uL (4.0-10.0)
[2020-11-07 06:01] LABS: NT Pro B Type Natriuretic Pept 546 pg/mL (0-125); Procalcitonin 0.43 ng/mL (0-0.5)
[2020-11-07 06:02] LABS: Alanine Aminotransferase 30 U/L (0-33); Albumin Level 3.1 g/dL (3.5-5.2); Alkaline Phosphatase 124 IU/L (35-105); Anion Gap 13.6 (5-19); Aspartate Amino Transferase 27 U/L (0-32); Blood Urea Nitrogen 8 mg/dL (6-20); Calcium 8.5 mg/dL (8.5-10.5); Carbon Dioxide 22 mmol/L (22-29); Chloride 102 mmol/L (98-107); Globulin 3.6 g/dL (1.3-4.6); Glomerular Filtration Rate 89.7 mL/min (90-130); Glucose 150 mg/dL (65-115); Magnesium 2.3 mg/dL (1.7-2.3); Osmolality Calculated 277 mOsm/kg (285-295); Potassium 4.6 mmol/L (3.5-5.1); Sodium 133 mmol/L (136-145); Total Bilirubin 0.3 mg/dL (0.15-1.2); Total Protein 6.7 g/dL (6.6-8.7)
[2020-11-07] MEDS: vancomycin 1,250 MG/250 ML PIGGYBACK 250 MG IV ×2 (06:08→20:12)
[2020-11-07] MEDS: acetaminophen 325 mg Tablet 650 MG PO (08:03)
[2020-11-07] MEDS: gabapentin 300 mg Capsule 600 MG PO ×3 (08:03→20:12)
[2020-11-07] MEDS: guaiFENesin-dextromethorphan UDC 10 mL PO ×4 (09:08→20:12)
[2020-11-07] MEDS: fluoxetine 20 mg Capsule 40 MG PO (09:08)
[2020-11-07] MEDS: pantoprazole DR 40 mg Tablet PO (09:09)
--- NOTE | 2020-11-07 11:23 | PC.NURSE ---
Nurse attempted to get patient to sit on the side of the bed or up to a chair. Explained importance of ambulate. Pt refused at this time. States that she had an exhausting night and just wants to sleep. Nurse recieed new diet orders and pt is no longer NPO. Will attempt to get pt up again for lunch.
[2020-11-07] MEDS: nicotine 21 mg Patch 1 PATCH TRANSDERMA (12:34)
[2020-11-07] MEDS: benzonatate 100 mg Capsule PO (12:35)
--- NOTE | 2020-11-07 13:14 | PM.PN ---
Subjective Subjective: Interval history: Patient was seen and examined today,continues to have severe non productive coughing.Has remained afebrile,WBC count is trending down.Continue to saturate well on 3Ls oxygen Via nc. Vitals/I&O/Wt Last Vital Signs Temp 98.8 F 11/07/20 12:00 Pulse 79 11/07/20 13:00 Resp 19 H 11/07/20 13:00 BP 105/68 11/07/20 13:00 Pulse Ox 95 11/07/20 13:00 11/06/20 11/07/20 11/07/20 22:59 06:59 14:59 Intake Total 550 / 550 80.005 / 630.005 304.75 / 304.75 Balance 550 / 550 80.005 / 630.005 304.75 / 304.75 Weight last 48 hrs Weight 81.647 kg Weight 74.843 kg Physical Exam HENMT: COMMON NORMALS: normocephalic and atraumatic HEAD & SCALP: normocephalic and atraumatic Resp: COMMON NORMALS: clear to auscultation bilaterally AUSCULTATION: clear to auscultation bilaterally Cardio: COMMON NORMALS: regular rate, regular rhythm, S1 normal heart sound present, S2 normal heart sound present, No gallops present (Cardio), No murmurs present (Cardio), No rub (Cardio) and Peripheral pulses 2+ throughout RATE: regular rate RHYTHM: regular rhythm HEART SOUNDS: S1 normal heart sound present and S2 normal heart sound present PERIPHERAL PULSES: Peripheral pulses 2+ throughout GI: COMMON NORMALS: Normal to inspection, nondistended, normoactive bowel sounds present, Soft to palpation, non-tender, No hepatosplenomegaly present and no masses AUSCULTATION: Yes normoactive bowel sounds PALPATION: Yes Soft to palpation and Yes No hepatosplenomegaly present RECTAL EXAM: deferred Extremity: COMMON NORMALS: no clubbing, cyanosis or edema and no pedal edema Data : 11/07/20 05:00 11/07/20 05:00 Micro: Microbiology 11/06/20 18:33 Blood Culture - Preliminary Blood SPECIMEN COLLECTED 11/06/20 18:33 Blood Culture - Preliminary Blood SPECIMEN COLLECTED A&P Assessment and plan (1) Pneumonia: Blood culture urine Legionella antigen urine bacterial antigen panel Sputum Culture Urine Culture Rapid COVID Antigen:Negative Covid PCR:Negative 2D Echo: Procalcitonin: Normal Lactic Acid :Normal Monitor serial X-ray chest Vancomycin Zosyn Status: Acute (2) Respiratory failure with hypoxia: Respiratory failure with hypoxia secondary to pneumonia Plan is 1 Status: Acute (3) Thrombocytosis: Reactive thrombocytosis Status: Acute (4) Hyponatremia: Hypovolemic hyponatremia Gentle IV hydration Status: Acute (5) Transaminitis: Likely secondary to dehydration 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
[2020-11-07 14:38] LABS: Coronavirus Test Green County Not Detected
--- NOTE | 2020-11-07 15:39 | PC.NURSE ---
Transferred patient to [facility] room 262. Report given to Madie ABREU. Transferred patient via wheelchair. Transport was uneventful
[2020-11-07] MEDS: sodium chloride 0.9% 1,000 ML 50 ML IV (17:41)
--- NOTE | 2020-11-07 17:56 | USCV_ITS ---
Camila Menendez Age: 45 Gender: F : 1975 Exam Date: 11/07/2020 11:13 Ordering Phys: Quinton Fishman DO Technologist: Exam Location: [facility] Indication: TACH BP: 85 / 61 HR: 59 Rhythm: Sinus Technical Quality: Fair MEASUREMENTS (Male / Female) Normal Values 2D ECHO LV Diastolic Diameter PLAX 3.5 cm 4.2 - 5.9 / 3.9 - 5.3 cm LV Systolic Diameter PLAX 2.1 cm IVS Diastolic Thickness 0.9 cm 0.6 - 1.0 / 0.6 - 0.9 cm IVS Systolic Thickness 1.1 cm LVPW Diastolic Thickness 0.8 cm 0.6 - 1.0 / 0.6 - 0.9 cm LVPW Systolic Thickness 0.9 cm LVOT Diameter 1.8 cm LV Ejection Fraction 2D Teich 72.8 % LV Ejection Fraction MOD 2C 70.6 % LV Ejection Fraction 2C AL 71.0 % LA Diameter 3.4 cm LA Width 3.4 cm LA Height 3.6 cm RA Width 3.5 cm RA Height 4.0 cm Aorta at Sinotubular Diameter 2.6 cm M-MODE LV Diastolic Diameter MM 3.5 cm 4.2 - 5.9 / 3.9 - 5.3 cm LV Systolic Diameter MM 2.2 cm LV Ejection Fraction MM Teich 67.9 % IVS Diastolic Thickness MM 0.7 cm 0.6 - 1.0 / 0.6 - 0.9 cm IVS Systolic Thickness MM 1.2 cm LVPW Diastolic Thickness MM 0.7 cm 0.6 - 1.0 / 0.6 - 0.9 cm LVPW Systolic Thickness MM 1.5 cm RV Diastolic Diameter MM 1.2 cm Aortic Annulus Diameter 3.2 cm LA Ao Ratio MM 1.1 MV E Point Septal Separation 1.5 cm DOPPLER AV Peak Velocity 146.0 cm/s LVOT Peak Velocity 108.7 cm/s AV Area Cont Eq vti 2.0 cm squared AV Area Cont Eq pk 2.0 cm squared MV Area PHT 5.0 cm squared Mitral E to A Ratio 0.8 MV E' Velocity 46.0 cm/s Mitral E to MV E' Ratio 6.2 Mitral E to LV E' Lateral Ratio 5.6 Mitral E to LV E' Septal Ratio 7.1 TR Peak Velocity 234.0 cm/s TR Peak Gradient 21.9 mmHg TV Peak E Velocity 98.0 cm/s Right Atrial Pressure 3.0 mmHg Pulmonary Artery Systolic Pressu 24.9 mmHg FINDINGS Left Ventricle Normal left ventricular size. LV systolic function is normal with EF of 55-60%. No regional wall motion abnormalities. Diastolic function is normal Right Ventricle The right ventricle is normal in size and function. Right Atrium The right atrium is normal in size. Left Atrium The left atrium is normal in size. Mitral Valve Structurally normal mitral valve without significant stenosis or prolapse. There is no mitral regurgitation. Aortic Valve Structurally normal aortic valve without significant sclerosis or stenosis. There is no aortic regurgitation. Tricuspid Valve Structurally normal tricuspid valve without significant stenosis. Trace TR is noted. RVSP is 20- 25mmHg Pulmonic Valve Grossly normal Pericardium Normal pericardium without effusion. Aorta Normal ascending aorta dimension. CONCLUSIONS LV systolic function is normal with EF of 55-60% Diastolic function is normal No significant valvular heart disease noted No comparison studies are available Chester Lang MD (Electronically Signed) Final Date: 07 Nov 2020 12:23 S
--- NOTE | 2020-11-07 18:55 | PC.RESP ---
Smoking Cessation information sent to patient.
[2020-11-07 19:04] LABS: Vancomycin Trough 8.5 ug/mL (10-15)
[2020-11-07] MEDS: LORazepam 2 mg/mL INJ 1 mL 1 MG IVP (20:18)
[2020-11-08] VITALS (9 sets, daily range): BP systolic 101–115; BP diastolic 65–75; PULSE 76–96; RESP 16–34; TEMP 36.8–38; O2SAT 86–95
[2020-11-08] MEDS: guaiFENesin-dextromethorphan UDC 10 mL PO ×6 (01:58→20:37)
[2020-11-08] MEDS: piperacillin-tazobactam 3.375 GM in sodium chloride 0.9% (plus) 50 ML IV ×3 (04:09→20:34)
[2020-11-08 06:05] LABS: Basophils % 0.1 %; Hematocrit 33.8 % (37.0-47.0); Hemoglobin 10.9 g/dL (11.5-15.3); Lymphocytes # 1.8 10^3/uL (0.8-4.8); Lymphocytes % 11.7 %; Mean Corpuscular HGB Conc 32.2 g/dL (30.0-36.0); Mean Corpuscular Hemoglobin 27.7 pg (28.0-34.0); Mean Platelet Volume 9.9 fL (7.4-10.4); Monocytes # 0.9 10^3/uL (0.2-0.9); Monocytes % 6.2 %; Neutrophils # 12.32 10^3/uL (1.8-7.7); Neutrophils % 81.7 %; Nucleated Red Blood Cells % 0 %; Platelet Count 398 10^3/cmm (130-400); Red Blood Count 3.93 10^6/uL (4.1-5.3); Red Cell Distribution Width 12.8 % (12.1-15.1); White Blood Count 15.1 10^3/uL (4.0-10.0)
[2020-11-08 06:11] LABS: Alanine Aminotransferase 23 U/L (0-33); Alkaline Phosphatase 100 IU/L (35-105); Anion Gap 11.8 (5-19); Aspartate Amino Transferase 25 U/L (0-32); Blood Urea Nitrogen 9 mg/dL (6-20); Calcium 8.1 mg/dL (8.5-10.5); Carbon Dioxide 23 mmol/L (22-29); Chloride 105 mmol/L (98-107); Creatinine Clr Calc Pharmacy 102.7004; Globulin 3.3 g/dL (1.3-4.6); Glomerular Filtration Rate 89.7 mL/min (90-130); Glucose 127 mg/dL (65-115); Osmolality Calculated 282 mOsm/kg (285-295); Potassium 3.8 mmol/L (3.5-5.1); Sodium 136 mmol/L (136-145); Total Bilirubin 0.2 mg/dL (0.15-1.2); Total Protein 6.3 g/dL (6.6-8.7)
[2020-11-08] MEDS: fluoxetine 20 mg Capsule 40 MG PO (09:27)
[2020-11-08] MEDS: pantoprazole DR 40 mg Tablet PO (09:27)
[2020-11-08] MEDS: gabapentin 300 mg Capsule 600 MG PO ×3 (09:27→20:37)
[2020-11-08] MEDS: vancomycin 1,500 MG/300 ML PIGGYBACK 200 MG IV ×2 (09:28→18:55)
[2020-11-08] MEDS: nicotine 21 mg Patch 1 PATCH TRANSDERMA (09:32)
[2020-11-08] MEDS: sodium chloride 0.9% 1,000 ML 75 ML IV (10:19)
[2020-11-08] MEDS: LORazepam 2 mg/mL INJ 1 mL 1 MG IVP (10:22)
--- NOTE | 2020-11-08 13:11 | P.PN_ITS ---
Subjective Subjective: Interval history: Patient was seen and examined today,continues to have severe non productive coughing. Vitals/I&O/Wt Last Vital Signs Temp 98.4 F 11/08/20 07:37 Pulse 81 11/08/20 07:37 Resp 20 H 11/08/20 07:37 BP 102/68 11/08/20 07:37 Pulse Ox 94 11/08/20 07:37 11/07/20 11/08/20 11/08/20 22:59 06:59 14:59 Intake Total 1300 / 2084.75 50 / 2134.75 1181.667 / 1181.667 Output Total 300 / 1300 Balance 1000 / 784.75 50 / 834.75 1181.667 / 1181.667 Weight last 48 hrs Weight 82.129 kg Weight 81.647 kg Weight 74.843 kg Physical Exam HENMT: COMMON NORMALS: normocephalic and atraumatic HEAD & SCALP: normocephalic and atraumatic Resp: COMMON NORMALS: clear to auscultation bilaterally AUSCULTATION: clear to auscultation bilaterally Cardio: COMMON NORMALS: regular rate, regular rhythm, S1 normal heart sound present, S2 normal heart sound present, No gallops present (Cardio), No murmurs present (Cardio), No rub (Cardio) and Peripheral pulses 2+ throughout RATE: regular rate RHYTHM: regular rhythm HEART SOUNDS: S1 normal heart sound present and S2 normal heart sound present PERIPHERAL PULSES: Peripheral p ulses 2+ throughout GI: COMMON NORMALS: Normal to inspection, nondistended, normoactive bowel sounds present, Soft to palpation, non-tender, No hepatosplenomegaly present and no masses AUSCULTATION: Yes normoactive bowel sounds PALPATION: Yes Soft to palpation and Yes No hepatosplenomegaly present RECTAL EXAM: deferred Extremity: COMMON NORMALS: no clubbing, cyanosis or edema and no pedal edema Data : 11/08/20 05:41 11/08/20 05:41 Micro: Microbiology 11/07/20 15:45 MRSA Culture - Final Nose 11/06/20 18:33 Blood Culture - Preliminary Blood NEGATIVE TO DATE 11/06/20 18:33 Blood Culture - Preliminary Blood NEGATIVE TO DATE 11/06/20 13:35 Legionella Urinary Antigen - Final Urine,Clean Catch Bacterial Antigens - Final A&P Assessment and plan (1) Pneumonia: Blood culture: Negative urine Legionella antigen urine bacterial antigen panel:Negative Respiratory Viral Panel MELL R/F Sputum Culture Urine Culture Rapid COVID Antigen:Negative Covid PCR:Negative 2D Echo:LV systolic function is normal with EF of 55-60%, Diastolic function is normal, No significant valvular heart disease noted. Procalcitonin: Normal Lactic Acid :Normal Monitor serial X-ray chest Vancomycin Zosyn Azithromycin Status: Acute (2) Respiratory failure with hypoxia: Respiratory failure with hypoxia secondary to pneumonia cannot conclusively r/o Pulmonary complications of cocaine abuse Solumedrol 60 mg I.V Q8H Has been added. 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
[2020-11-08] MEDS: ipratropium-albuterol 3 mL Neb INHALATION (14:37)
--- NOTE | 2020-11-08 15:01 | XR_ITS ---
WS: [id number] Portable AP upright chest, 11/08/2020 Clinical Data: SOB,PNA Comparison: Portable chest, 11/06/2020. Findings: Dense pulmonary opacities are seen throughout both lungs most consistent with pneumonia. Th e heart is not enlarged. No large masses are seen. Monitor leads are on the chest wall. XR/XR chest 1V portable [id number] Impression: Dense pulmonary opacities which have increased slightly in the last 2 days cons istent with pneumonia.
[2020-11-08] MEDS: benzonatate 100 mg Capsule PO (16:38)
[2020-11-08] MEDS: FUROsemide 10 mg/mL SDV 2mL 20 MG IVP (16:39)
[2020-11-08] MEDS: azithromycin 500 MG in sodium chloride 0.9% 250 ML 250 MG IV (16:39)
[2020-11-08] MEDS: enoxaparin 40 mg/0.4 mL Syringe SUBCUT (16:43)
[2020-11-09] VITALS (19 sets, daily range): BP systolic 96–119; BP diastolic 58–78; PULSE 65–92; RESP 18–50; TEMP 36.6–37.4; O2SAT 85–96
[2020-11-09] MEDS: ipratropium-albuterol 3 mL Neb INHALATION ×2 (00:36→07:34)
[2020-11-09] MEDS: guaiFENesin-dextromethorphan UDC 10 mL PO ×6 (00:45→20:57)
[2020-11-09 01:30] LABS: Influenza A by IFA Negative (Negative); Influenza B by IFA Positive (Negative)
[2020-11-09] MEDS: piperacillin-tazobactam 3.375 GM in sodium chloride 0.9% (plus) 50 ML IV ×3 (04:07→20:57)
[2020-11-09] MEDS: vancomycin 1,500 MG/300 ML PIGGYBACK 200 MG IV (06:02)
[2020-11-09 06:37] LABS: Hematocrit 34.4 % (37.0-47.0); Hemoglobin 11.3 g/dL (11.5-15.3); Lymphocytes # 0.5 10^3/uL (0.8-4.8); Lymphocytes % 5.7 %; Mean Corpuscular HGB Conc 32.8 g/dL (30.0-36.0); Mean Corpuscular Hemoglobin 27.8 pg (28.0-34.0); Mean Corpuscular Volume 84.7 fL (81-99); Mean Platelet Volume 9.3 fL (7.4-10.4); Monocytes # 0.2 10^3/uL (0.2-0.9); Monocytes % 1.7 %; Neutrophils # 8.41 10^3/uL (1.8-7.7); Neutrophils % 91.8 %; Nucleated Red Blood Cells % 0 %; Platelet Count 403 10^3/cmm (130-400); Red Blood Count 4.06 10^6/uL (4.1-5.3); Red Cell Distribution Width 12.7 % (12.1-15.1); White Blood Count 9.2 10^3/uL (4.0-10.0)
[2020-11-09 06:54] LABS: Alanine Aminotransferase 21 U/L (0-33); Albumin Level 3.2 g/dL (3.5-5.2); Alkaline Phosphatase 163 IU/L (35-105); Anion Gap 12.7 (5-19); Aspartate Amino Transferase 23 U/L (0-32); Blood Urea Nitrogen 7 mg/dL (6-20); Calcium 8.1 mg/dL (8.5-10.5); Carbon Dioxide 25 mmol/L (22-29); Chloride 104 mmol/L (98-107); Globulin 3.7 g/dL (1.3-4.6); Glomerular Filtration Rate 132.2 mL/min (90-130); Glucose 164 mg/dL (65-115); Osmolality Calculated 288 mOsm/kg (285-295); Potassium 3.7 mmol/L (3.5-5.1); Sodium 138 mmol/L (136-145); Total Bilirubin 0.3 mg/dL (0.15-1.2); Total Protein 6.9 g/dL (6.6-8.7)
[2020-11-09] MEDS: pantoprazole DR 40 mg Tablet PO (08:39)
[2020-11-09] MEDS: gabapentin 300 mg Capsule 600 MG PO ×3 (08:39→20:57)
[2020-11-09] MEDS: fluoxetine 20 mg Capsule 40 MG PO (08:39)
[2020-11-09] MEDS: nicotine 21 mg Patch 1 PATCH TRANSDERMA (08:42)
[2020-11-09] MEDS: FUROsemide 10 mg/mL SDV 4mL 40 MG IVP (09:28)
[2020-11-09] MEDS: oseltamivir phosphate 75 mg Capsule PO ×2 (09:28→16:54)
--- NOTE | 2020-11-09 14:46 | P.PN_ITS ---
Subjective Subjective: Interval history: Patient was seen and examined today,continues to have severe non productive coughing.Currently requiring 8Ls oxygen via nc to maintain optimum saturation. Vitals/I&O/Wt Last Vital Signs Temp 98.2 F 11/09/20 12:27 Pulse 76 11/09/20 13:27 Resp 28 H 11/09/20 12:27 BP 96/58 11/09/20 12:27 Pulse Ox 93 11/09/20 13:27 11/08/20 11/09/20 11/09/20 22:59 06:59 14:59 Intake Total 1720.00 / 2901.667 50 / 2951.667 695 / 695 Output Total 700 / 700 1000 / 1700 200 / 200 Balance 1020.00 / 2201.667 -950 / 1251.667 495 / 495 Weight last 48 hrs Weight 81.902 kg Weight 82.129 kg Physical Exam HENMT: COMMON NORMALS: normocephalic and atraumatic HEAD & SCALP: normocephalic and atraumatic Resp: COMMON NORMALS: clear to auscultation bilaterally AUSCULTATION: clear to auscultation bilaterally Cardio: COMMON NORMALS: regular rate, regular rhythm, S1 normal heart sound present, S2 normal heart sound present, No gallops present (Cardio), No murmurs present (Cardio), No rub (Cardio) and Peripheral pulses 2+ throughout RATE: regular rate RHYTHM: regular rhythm HEART SOUNDS: S1 normal heart sound present and S2 normal heart sound present PERIPHERAL PULSES: Peripheral pulses 2+ throughout GI: COMMON NORMALS: Normal to inspection, nondistended, normoactive bowel sounds present, Soft to palpation, non-tender, No hepatosplenomegaly present and no masses AUSCULTATION: Yes normoactive bowel sounds PALPATION: Yes Soft to palpation and Yes No hepatosplenomegaly present RECTAL EXAM: deferred Extremity: COMMON NORMALS: no clubbing, cyanosis or edema and no pedal edema Data : 11/09/20 06:25 11/09/20 06:25 Micro: Microbiology 11/07/20 15:45 MRSA Culture - Final Nose A&P Assessment and plan (1) Pneumonia: PNA 2/2 to Influenza B cannot r/o supper added Bacterial PNA Blood culture: Negative urine Legionella antigen MRSA :Negative urine bacterial antigen panel:Negative Influenza B Antigen :Positive Respiratory Viral Panel: MELL: Pending R/F: 20 Sputum Culture Urine Culture:Negative Rapid COVID Antigen:Negative Covid PCR:Negative 2D Echo:LV systolic function is normal with EF of 55-60%, Diastolic function is normal, No significant valvular heart disease noted. Procalcitonin: Normal Lactic Acid :Normal Monitor serial X-ray chest Vancomycin (11/06-11/09 ) Zosyn (11/06---) Azithromycin (11/09----) Tamiflu 75 mg po BID ( 11/09-11/14 ) Status: Acute (2) Respiratory failure with hypoxia: Respiratory failure with hypoxia secondary to pneumonia Solumedrol 60 mg I.V Q8H was added thinking possible Contaminated meth use.Has been discontinued as Influenza B is Positive. 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
[2020-11-09] MEDS: enoxaparin 40 mg/0.4 mL Syringe SUBCUT (16:40)
[2020-11-09] MEDS: azithromycin 500 MG in sodium chloride 0.9% 250 ML 250 MG IV (16:48)
[2020-11-09] MEDS: LORazepam 2 mg/mL INJ 1 mL 1 MG IVP (16:48)
--- NOTE | 2020-11-09 19:08 | PC.NURSE ---
Report to Dmitry HERNANDEZ at this time.
[2020-11-09 19:31] LABS: Vancomycin Trough 10.2 ug/mL (10-15)
[2020-11-10] VITALS (14 sets, daily range): BP systolic 93–115; BP diastolic 69–82; PULSE 63–99; RESP 16–21; TEMP 36.7–37.4; O2SAT 90–98
[2020-11-10] MEDS: guaiFENesin-dextromethorphan UDC 10 mL PO ×6 (01:43→21:20)
[2020-11-10] MEDS: piperacillin-tazobactam 3.375 GM in sodium chloride 0.9% (plus) 50 ML IV ×3 (04:12→21:19)
[2020-11-10] MEDS: LORazepam 2 mg/mL INJ 1 mL 1 MG IVP ×2 (04:21→18:00)
[2020-11-10] MEDS: ipratropium-albuterol 3 mL Neb INHALATION (04:24)
--- NOTE | 2020-11-10 06:00 | XRR_ITS ---
PROCEDURE INFORMATION: Exam: XR Chest Exam date and time: 11/09/2020 11:59 PM Age: 45 years old Clinical indication: Cough and fever and shortness of breath; Additional info: Pna, SOB, cough TECHNIQUE: Imaging protocol: XR of the chest. Views: 1 view. COMPARISON: CR XR chest 1V portable [id number] 11/08/2020 3:46 PM FINDINGS: Lungs: Low lung volumes. Persistent bilateral airspace opacities. No large pleural effusion or pneumothorax. Pleural spaces: See Lungs finding. Heart/Mediastinum: Stable cardiomediastinal silhouette. Bones/joints: No acute osseous injury identified. XR/XR chest 1V portable [id number] IMPRESSION: Persistent bilateral airspace opacities.
[2020-11-10] MEDS: nicotine 21 mg Patch 1 PATCH TRANSDERMA (08:01)
[2020-11-10] MEDS: pantoprazole DR 40 mg Tablet PO (08:02)
[2020-11-10] MEDS: fluoxetine 20 mg Capsule 40 MG PO (08:02)
[2020-11-10] MEDS: gabapentin 300 mg Capsule 600 MG PO ×3 (08:02→21:20)
[2020-11-10] MEDS: oseltamivir phosphate 75 mg Capsule PO ×2 (08:04→17:50)
[2020-11-10] MEDS: acetaminophen 325 mg Tablet 650 MG PO (11:59)
[2020-11-10 13:25] LABS: Basophils % 0.1 %; Eosinophils % 0.2 %; Hematocrit 35.3 % (37.0-47.0); Hemoglobin 11.2 g/dL (11.5-15.3); Lymphocytes # 1.2 10^3/uL (0.8-4.8); Mean Corpuscular HGB Conc 31.7 g/dL (30.0-36.0); Mean Corpuscular Hemoglobin 27.5 pg (28.0-34.0); Mean Corpuscular Volume 86.7 fL (81-99); Mean Platelet Volume 9.6 fL (7.4-10.4); Monocytes # 0.8 10^3/uL (0.2-0.9); Monocytes % 6.4 %; Neutrophils # 9.98 10^3/uL (1.8-7.7); Neutrophils % 82.7 %; Nucleated Red Blood Cells % 0 %; Platelet Count 361 10^3/cmm (130-400); Red Blood Count 4.07 10^6/uL (4.1-5.3); Red Cell Distribution Width 12.4 % (12.1-15.1); White Blood Count 12.1 10^3/uL (4.0-10.0)
--- NOTE | 2020-11-10 13:30 | P.PN_ITS ---
Subjective Subjective: Interval history: Patient was seen and examined today, continues to remain on 7Ls supplemental oxygen requirement. A.m. chest x-ray has shown minimal improvement. Continues to have significant desaturation with minimal exertion. Has remained afebrile. Vitals/I&O/Wt Last Vital Signs Temp 98.1 F 11/10/20 12:00 Pulse 76 11/10/20 12:00 Resp 18 11/10/20 12:00 BP 115/79 11/10/20 12:00 Pulse Ox 91 11/10/20 11:09 11/09/20 11/10/20 11/10/20 22:59 06:59 14:59 Intake Total 300 / 995 50 / 1045 50 / 50 Balance 300 / 795 50 / 845 50 / 50 Weight last 48 hrs Weight 80.966 kg Weight 81.902 kg Physical Exam HENMT: COMMON NORMALS: normocephalic and atraumatic HEAD & SCALP: normocephalic and atraumatic Resp: COMMON NORMALS: clear to auscultation bilaterally AUSCULTATION: clear to auscultation bilaterally Cardio: COMMON NORMALS: regular rate, regular rhythm, S1 normal heart sound present, S2 normal heart sound present, No gallops present (Cardio), No murmurs present (Cardio), No rub (Cardio) and Peripheral pulses 2+ throughout RATE: regular rate RHYTHM: regular rhythm HEART SOUNDS: S1 normal heart sound present and S2 normal heart sound present PERIPHERAL PULSES: Peripheral pulses 2+ throughout GI: COMMON NORMALS: Normal to inspection, nondistended, normoactive bowel sounds present, Soft to palpation, non-tender, No hepatosplenomegaly present and no masses AUSCULTATION: Yes normoactive bowel sounds PALPATION: Yes Soft to palpation and Yes No hepatosplenomegaly present RECTAL EXAM: deferred Extremity: COMMON NORMALS: no clubbing, cyanosis or edema and no pedal edema Data : 11/10/20 13:19 11/10/20 13:19 A&P Assessment and plan (1) Pneumonia: PNA 2/2 to Influenza B cannot r/o supper added Bacterial PNA Blood culture: Negative urine Legionella antigen MRSA :Negative urine bacterial antigen panel:Negative Influenza B Antigen :Positive Respiratory Viral Panel: MELL: Pending R/F: 20 Sputum Culture Urine Culture:Negative Rapid COVID Antigen:Negative Covid PCR:Negative 2D Echo:LV systolic function is normal with EF of 55-60%, Diastolic function is normal, No significant valvular heart disease noted. Procalcitonin: Normal Lactic Acid :Normal Monitor serial X-ray chest Vancomycin (11/06-11/09 ) Zosyn (11/06---) Azithromycin (11/09----) Tamiflu 75 mg po BID ( 11/09-11/14 ) Pulmonary consult Am Status: Acute (2) Respiratory failure with hypoxia: Respiratory failure with hypoxia secondary to pneumonia Solumedrol 60 mg I.V Q8H was added thinking possible Contaminated meth use.Has been discontinued as Influenza B is Positive. 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
[2020-11-10 13:47] LABS: Anion Gap 16.4 (5-19); Blood Urea Nitrogen 12 mg/dL (6-20); Calcium 8.4 mg/dL (8.5-10.5); Carbon Dioxide 22 mmol/L (22-29); Chloride 102 mmol/L (98-107); Creatinine Clr Calc Pharmacy 102.2731; Glomerular Filtration Rate 89.7 mL/min (90-130); Glucose 238 mg/dL (65-115); Osmolality Calculated 292 mOsm/kg (285-295); Potassium 3.4 mmol/L (3.5-5.1); Sodium 137 mmol/L (136-145)
[2020-11-10] MEDS: benzonatate 100 mg Capsule PO ×3 (15:45→21:20)
[2020-11-10] MEDS: oxyCODONE-APAP 5-325 mg Tablet 1 TAB PO (17:48)
[2020-11-10] MEDS: enoxaparin 40 mg/0.4 mL Syringe SUBCUT (17:49)
[2020-11-10] MEDS: azithromycin 500 MG in sodium chloride 0.9% 250 ML 250 MG IV (17:50)
[2020-11-10] MEDS: FUROsemide 10 mg/mL SDV 2mL 20 MG IVP (17:50)
--- NOTE | 2020-11-10 18:10 | PC.NURSE ---
patient has been incontinent for the majority of this shift.
[2020-11-11] VITALS (9 sets, daily range): BP systolic 92–119; BP diastolic 59–68; PULSE 63–75; RESP 16–24; TEMP 36.6–37.3; O2SAT 92–95
[2020-11-11] MEDS: benzonatate 100 mg Capsule PO ×6 (01:11→21:15)
[2020-11-11] MEDS: guaiFENesin-dextromethorphan UDC 10 mL PO ×6 (01:11→19:45)
[2020-11-11] MEDS: piperacillin-tazobactam 3.375 GM in sodium chloride 0.9% (plus) 50 ML IV ×3 (04:48→19:46)
[2020-11-11 05:33] LABS: Basophils % 0.1 %; Eosinophils # 0.2 10^3/uL (0.0-0.8); Eosinophils % 2.1 %; Hematocrit 34.8 % (37.0-47.0); Hemoglobin 11.4 g/dL (11.5-15.3); Lymphocytes # 1.4 10^3/uL (0.8-4.8); Lymphocytes % 19.3 %; Mean Corpuscular HGB Conc 32.8 g/dL (30.0-36.0); Mean Corpuscular Hemoglobin 27.7 pg (28.0-34.0); Mean Corpuscular Volume 84.7 fL (81-99); Mean Platelet Volume 9.5 fL (7.4-10.4); Monocytes # 0.5 10^3/uL (0.2-0.9); Monocytes % 7.5 %; Neutrophils # 5.06 10^3/uL (1.8-7.7); Neutrophils % 70.4 %; Nucleated Red Blood Cells % 0 %; Platelet Count 444 10^3/cmm (130-400); Red Blood Count 4.11 10^6/uL (4.1-5.3); Red Cell Distribution Width 12.5 % (12.1-15.1); White Blood Count 7.2 10^3/uL (4.0-10.0)
[2020-11-11 06:05] LABS: Anion Gap 14.1 (5-19); Blood Urea Nitrogen 8 mg/dL (6-20); Calcium 8.2 mg/dL (8.5-10.5); Carbon Dioxide 26 mmol/L (22-29); Chloride 99 mmol/L (98-107); Glomerular Filtration Rate 132.2 mL/min (90-130); Glucose 90 mg/dL (65-115); NT Pro B Type Natriuretic Pept 426 pg/mL (0-125); Osmolality Calculated 280 mOsm/kg (285-295); Potassium 3.1 mmol/L (3.5-5.1); Sodium 136 mmol/L (136-145)
--- NOTE | 2020-11-11 08:51 | CTR_ITS ---
PROCEDURE INFORMATION: Exam: CT Chest Without Contrast; Diagnostic Exam date and time: 11/11/2020 8:55 AM Age: 45 years old Clinical indication: Cough and shortness of breath; Additional info: Pna TECHNIQUE: Imaging protocol: Diagnostic computed tomography of the chest without contrast. Radiation optimization: All CT scans at this facility use at least one of these dose optimization techniques: automated exposure control; mA and/or kV adjustment per patient size (includes targeted exams where dose is matched to clinical indication); or iterative reconstruction. COMPARISON: CT angio chest PE protcl [id number] 11/06/2020 5:04 PM RADIATION DOSE METRICS: Total DLP (mGy-cm): 656.6 FINDINGS: Lungs: Continued severe bilateral pneumonia with some peripheral sparing in the lower lung york. Pleural spaces: Unremarkable. No pneumothorax. No pleural effusion. Heart: Unremarkable. No cardiomegaly. No pericardial effusion. Aorta: Unremarkable. No aortic aneurysm. Lymph nodes: Unremarkable. No enlarged lymph nodes. Gallbladder and bile ducts: Contracted gallbladder. Kidneys and ureters: One or more nonobstructing right renal calyceal stones. Bones/joints: Unremarkable. No acute fracture. Soft tissues: Unremarkable. CT/CT chest [facility] [id number] IMPRESSION: Continued severe bilateral pneumonia with some peripheral sparing in the lower lung york. Radiation Dose CTDIVOL = (mGy): DLP = 656.6 (mGy-cm)
[2020-11-11] MEDS: gabapentin 300 mg Capsule 600 MG PO ×3 (08:59→21:15)
[2020-11-11] MEDS: nicotine 21 mg Patch 1 PATCH TRANSDERMA (08:59)
[2020-11-11] MEDS: fluoxetine 20 mg Capsule 40 MG PO (08:59)
[2020-11-11] MEDS: pantoprazole DR 40 mg Tablet PO (08:59)
[2020-11-11] MEDS: potassium chloride ER 20 mEq Tablet 40 MEQ PO (08:59)
[2020-11-11] MEDS: oseltamivir phosphate 75 mg Capsule PO ×2 (08:59→16:58)
--- NOTE | 2020-11-11 12:35 | PC.NURSE ---
patient requesting Ativan for anxiety. selling underwriter notified Dr Tyler. Quote Clerk received verbal order from Dr Tyler for Ativan 2mg PO Q12H PRN. Quote Clerk put orders in.
[2020-11-11] MEDS: LORazepam 2 mg Tablet PO ×2 (12:49→21:19)
[2020-11-11] MEDS: azithromycin 500 MG in sodium chloride 0.9% 250 ML 250 MG IV (16:58)
[2020-11-11] MEDS: enoxaparin 40 mg/0.4 mL Syringe SUBCUT (16:58)
--- NOTE | 2020-11-11 19:46 | P.PN_ITS ---
Subjective Subjective: Interval history: Patient was seen and examined this morning.Supplemental Oxygen requirement has gone down today,currently she is saturating well on 2Ls to R/A. WBC is trending down. Patient is being encouraged to use incentive spirometry,and try and be more active and spend more time in chair.She is also being encouraged to increase her po intake. Vitals/I&O/Wt Last Vital Signs Temp 98.6 F 11/11/20 08:00 Pulse 63 11/11/20 14:00 Resp 18 11/11/20 08:00 BP 98/60 11/11/20 16:00 Pulse Ox 93 11/11/20 07:51 11/11/20 11/11/20 11/11/20 06:59 14:59 22:59 Intake Total 290 / 640 50 / 50 1020 / 1070 Output Total 800 / 800 Balance -510 / -160 50 / 50 1020 / 1070 Weight last 48 hrs Weight 80.104 kg Weight 80.966 kg Physical Exam HENMT: COMMON NORMALS: normocephalic and atraumatic HEAD & SCALP: normocephalic and atraumatic Resp: COMMON NORMALS: clear to auscultation bilaterally AUSCULTATION: clear to auscultation bilaterally Cardio: COMMON NORMALS: regular rate, regular rhythm, S1 normal heart sound present, S2 normal heart sound present, No gallops present (Cardio), No murmurs present (Cardio), No rub (Cardio) and Peripheral pulses 2+ throughout RATE: regular rate RHYTHM: regular rhythm HEART SOUNDS: S1 normal heart sound present and S2 normal heart sound present PERIPHERAL PULSES: Peripheral pulses 2+ throughout GI: COMMON NORMALS: Normal to inspection, nondistended, normoactive bowel sounds present, Soft to palpation, non-tender, No hepatosplenomegaly present and no masses AUSCULTATION: Yes normoactive bowel sounds PALPATION: Yes Soft to palpation and Yes No hepatosplenomegaly present RECTAL EXAM: deferred Extremity: COMMON NORMALS: no clubbing, cyanosis or edema and no pedal edema Data : 11/11/20 05:07 11/11/20 05:07 Micro: Microbiology 11/06/20 18:33 Blood Culture - Final Blood NO GROWTH AFTER 5 DAYS 11/06/20 18:33 Blood Culture - Final Blood NO GROWTH AFTER 5 DAYS A&P Assessment and plan (1) Pneumonia: PNA 2/2 to Influenza B cannot r/o supper added Bacterial PNA Blood culture: Negative urine Legionella antigen MRSA PCR :Negative urine bacterial antigen panel:Negative Influenza B Antigen :Positive Respiratory Viral Panel: MELL: Pending R/F: 20 Sputum Culture Urine Culture:Negative Rapid COVID Antigen:Negative Covid PCR:Negative 2D Echo:LV systolic function is normal with EF of 55-60%, Diastolic function is normal, No significant valvular heart disease noted. Procalcitonin: Normal Lactic Acid :Normal CTA chest : 11/06: No P/E. Scattered ground-glass airspace disease in both lungs. C.T chest Without Contrast : 11/11: Continued severe bilateral pneumonia with so me peripheral sparing in the lower lung york. Monitor serial X-ray chest Vancomycin (11/06-11/09 ) Zosyn (11/06---) Azithromycin (11/09----) Tamiflu 75 mg po BID ( 11/09-11/14 ) Pulmonary consult Am in the patient fails to continue to improve for possible bronchoscopy. Status: Acute (2) Respiratory failure with hypoxia: Respiratory failure with hypoxia secondary to pneumonia Solumedrol 60 mg I.V Q8H was added thinking possible Contaminated meth use.Has been discontinued as Influenza B is Positive. 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
[2020-11-11] MEDS: ibuprofen 600 mg Tablet PO (21:14)
[2020-11-12] VITALS (10 sets, daily range): BP systolic 104–125; BP diastolic 61–84; PULSE 59–94; RESP 16–20; TEMP 36.6–37.1; O2SAT 92–98
[2020-11-12] MEDS: benzonatate 100 mg Capsule PO ×6 (01:35→21:19)
[2020-11-12] MEDS: guaiFENesin-dextromethorphan UDC 10 mL PO ×6 (01:36→21:19)
[2020-11-12] MEDS: piperacillin-tazobactam 3.375 GM in sodium chloride 0.9% (plus) 50 ML IV ×2 (05:00→14:40)
[2020-11-12 05:09] LABS: Basophils % 0.2 %; Eosinophils # 0.2 10^3/uL (0.0-0.8); Eosinophils % 4.1 %; Hematocrit 35.3 % (37.0-47.0); Hemoglobin 11.4 g/dL (11.5-15.3); Lymphocytes # 1.3 10^3/uL (0.8-4.8); Lymphocytes % 26.2 %; Mean Corpuscular HGB Conc 32.3 g/dL (30.0-36.0); Mean Corpuscular Hemoglobin 27.7 pg (28.0-34.0); Mean Corpuscular Volume 85.9 fL (81-99); Mean Platelet Volume 9.4 fL (7.4-10.4); Monocytes # 0.5 10^3/uL (0.2-0.9); Neutrophils # 2.87 10^3/uL (1.8-7.7); Neutrophils % 58.7 %; Nucleated Red Blood Cells % 0 %; Platelet Count 448 10^3/cmm (130-400); Red Blood Count 4.11 10^6/uL (4.1-5.3); Red Cell Distribution Width 12.3 % (12.1-15.1); White Blood Count 4.9 10^3/uL (4.0-10.0)
[2020-11-12 05:33] LABS: Anion Gap 11.6 (5-19); Blood Urea Nitrogen 10 mg/dL (6-20); Calcium 8.6 mg/dL (8.5-10.5); Carbon Dioxide 26 mmol/L (22-29); Chloride 105 mmol/L (98-107); Glomerular Filtration Rate 132.2 mL/min (90-130); Glucose 97 mg/dL (65-115); Osmolality Calculated 287 mOsm/kg (285-295); Potassium 3.6 mmol/L (3.5-5.1); Sodium 139 mmol/L (136-145)
[2020-11-12] MEDS: fluoxetine 20 mg Capsule 40 MG PO (09:03)
[2020-11-12] MEDS: gabapentin 300 mg Capsule 600 MG PO ×3 (09:03→21:20)
[2020-11-12] MEDS: ibuprofen 600 mg Tablet PO ×3 (09:03→21:19)
[2020-11-12] MEDS: oseltamivir phosphate 75 mg Capsule PO ×2 (09:04→16:54)
[2020-11-12] MEDS: nicotine 21 mg Patch 1 PATCH TRANSDERMA (09:04)
[2020-11-12] MEDS: pantoprazole DR 40 mg Tablet PO (09:04)
--- NOTE | 2020-11-12 10:29 | PC.CHAP ---
Pastoral Care Encounter/Spiritual Assessment Type of Contact [] Declined bread dough mixer visit [] Patient/Family/Request visit [] Outpatient visit [x] Follow-up visit [] Physician referral [] Code/Alert [] Routine visit [] Staff referral [] Actively dying [] Patient sleeping [] Family support [] [] Out of room [] Palliative care [] [] Receiving care in room [] Pre-surgical visit [] Trauma [] Long length of stay [] ICU visit [] Other: Relational/Emotional Strength [] Patient feels connected with others/family/visitors/staff [] Distress [] Loneliness/isolation [] Abandonment Spirituality of Patient [] Person of Mattie [] Attends Latter Day of their Mattie [] Believes in Prayer [] Reads Bible or Synagogue materials [] There are Spiritual issues to be addressed Dust Puller Interventions [] Prayer [] Active listening [] Non-anxious presence [] Spiritual/emotional support [] Crisis/trauma care [] Spiritual counseling [] Bereavement support [] Provided bereavement packet [] Provided Bible/devotional materials [] Provided toy/stuffed animal, coloring book to patient or family member [] Provided Communion [] Anointing/[facility] [] Salvation [] Completed spiritual assessment [] Other: Impact on Illness or Injury [] Angry [] Fearful [] Anxious [] Often cries [] Exhaustion [] Unable to work [] Unable to attend scientology [] Unable to walk/stand [] Unable to read [] Unable to drive [] Unable to eat/drink [] Unable to sleep [] Unable to be with family [] Patient intubated [] Other: Summary Time spent with patient
[2020-11-12 15:53] LABS: Anti-Nuclear Antibody Screen NEGATIVE (NEGATIVE)
[2020-11-12] MEDS: azithromycin 500 MG in sodium chloride 0.9% 250 ML 250 MG IV (16:53)
[2020-11-12] MEDS: enoxaparin 40 mg/0.4 mL Syringe SUBCUT (16:54)
[2020-11-12 17:33] LABS: Adenovirus Not Detected (Not Detected); Human Metapneumovirus Not Detected (Not Detected); Human Parainflu Virus 1 Not Detected (Not Detected); Human Parainflu Virus 2 Not Detected (Not Detected); Human Parainflu Virus 3 Not Detected (Not Detected); Human Rsv A Not Detected (Not Detected); Influenza A Not Detected (Not Detected); Influenza B Not Detected (Not Detected); Rhinovirus/Enterovirus Not Detected (Not Detected)
--- NOTE | 2020-11-12 17:41 | P.PN_ITS ---
Subjective Subjective: Interval history: Subjectively feels improving today. Titrated down to room air, saturating 94% at this time, less dyspneic. Medications: Reviewed: Yes Vitals/I&O/Wt Last Vital Signs Temp 98.4 F 11/12/20 16:00 Pulse 72 11/12/20 16:02 Resp 16 11/12/20 16:00 BP 117/67 11/12/20 16:00 Pulse Ox 94 11/12/20 16:00 11/12/20 11/12/20 11/12/20 06:59 14:59 22:59 Intake Total 50 / 1240 530 / 530 Output Total 200 / 200 Balance -150 / 1040 530 / 530 Weight last 48 hrs Weight 81.737 kg Weight 80.104 kg Physical Exam Narrative: EXAM NARRATIVE: GEN: Awake, alert and oriented, no acute distress CVS: S1S2 N RS: CTA B/L Abd: Soft, nt/nd , bs+ PROGRAM REVIEW DIRECTOR: no focal neuro deficits Data : 11/12/20 04:42 11/12/20 04:42 Micro: Microbiology 11/06/20 18:33 Blood Culture - Final Blood NO GROWTH AFTER 5 DAYS 11/06/20 18:33 Blood Culture - Final Blood NO GROWTH AFTER 5 DAYS A&P Assessment and plan (1) Pneumonia: PNA 2/2 to Influenza B Received additionally 7 days of empiric piperacillin tazobactam and 8 days of IV azithromycin to cover for possibility of superadded bacterial infection. Discontinue both Zosyn and azithromycin today Continue Tamiflu MRSA PCR :Negative Covid PCR:Negative 11/06 CTA chest : 11/06: No P/E. Scattered ground-glass airspace disease in both lungs. C.T chest Without Contrast : 11/11: Continued severe bilateral pneumonia with some peripheral sparing in the lower lung york. Clinically improving today, now has been successfully weaned down to room air, saturating 94%. 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 Coding Level of Care Code Acute Director Of Event Sales for g Fwd Diagnoses Pneumonia J18.9 Respiratory failure with hypoxia J96.91 Thrombocytosis D47.3 Hyponatremia E87.1 Transaminitis R74.01
[2020-11-12] MEDS: LORazepam 2 mg Tablet PO (21:23)
[2020-11-13] VITALS (7 sets, daily range): BP systolic 98–116; BP diastolic 62–69; PULSE 57–70; RESP 15–20; TEMP 36.2–36.9; O2SAT 87–96
[2020-11-13] MEDS: benzonatate 100 mg Capsule PO ×2 (05:34→08:18)
[2020-11-13 06:22] LABS: Basophils % 0.7 %; Eosinophils # 0.3 10^3/uL (0.0-0.8); Eosinophils % 5.5 %; Hemoglobin 11.7 g/dL (11.5-15.3); Lymphocytes # 1.3 10^3/uL (0.8-4.8); Lymphocytes % 28.3 %; Mean Corpuscular HGB Conc 31.6 g/dL (30.0-36.0); Mean Corpuscular Hemoglobin 27.6 pg (28.0-34.0); Mean Corpuscular Volume 87.3 fL (81-99); Mean Platelet Volume 9.3 fL (7.4-10.4); Monocytes # 0.5 10^3/uL (0.2-0.9); Monocytes % 11.5 %; Neutrophils # 2.37 10^3/uL (1.8-7.7); Neutrophils % 52.5 %; Nucleated Red Blood Cells % 0 %; Platelet Count 441 10^3/cmm (130-400); Red Blood Count 4.24 10^6/uL (4.1-5.3); Red Cell Distribution Width 12.4 % (12.1-15.1); White Blood Count 4.5 10^3/uL (4.0-10.0)
[2020-11-13 06:39] LABS: Blood Urea Nitrogen 11 mg/dL (6-20); Calcium 8.4 mg/dL (8.5-10.5); Carbon Dioxide 24 mmol/L (22-29); Chloride 104 mmol/L (98-107); Glomerular Filtration Rate 107.2 mL/min (90-130); Glucose 85 mg/dL (65-115); Osmolality Calculated 285 mOsm/kg (285-295); Sodium 138 mmol/L (136-145)
[2020-11-13 06:42] LABS: Anion Gap 13.8 (5-19); Potassium 3.8 mmol/L (3.5-5.1)
[2020-11-13] MEDS: gabapentin 300 mg Capsule 600 MG PO (08:17)
[2020-11-13] MEDS: oseltamivir phosphate 75 mg Capsule PO (08:18)
[2020-11-13] MEDS: pantoprazole DR 40 mg Tablet PO (08:18)
[2020-11-13] MEDS: ibuprofen 600 mg Tablet PO (08:18)
[2020-11-13] MEDS: nicotine 21 mg Patch 1 PATCH TRANSDERMA (08:18)
[2020-11-13] MEDS: fluoxetine 20 mg Capsule 40 MG PO (08:18)
--- NOTE | 2020-11-13 13:33 | PC.NURSE ---
discharge instructions given to patient and patient verbalized understanding. patient received home oxygen and is waiting on meds to beds.
--- NOTE | 2020-11-13 14:02 | PC.NURSE ---
patient received meds to beds. patient taken to private vehicle via wheelchair by proposal manager writer.
--- NOTE | 2020-11-13 14:47 | P.DS_ITS ---
Discharge Providers Date of Admission: 11/06/20 18:03 Date of Discharge: November 13, 2020 Attending Provider at Admission: Charlie Tyler MD Attending Provider at Discharge: Chantal Sousa MD Primary Care Provider: Rodolfo Pena MD Diagnoses at Discharge Discharge Diagnosis (1) Pneumonia: Status: Acute Qualifiers: Pneumonia type: due to influenza A virus Laterality: bilateral Lung location: unspecified part of lung Qualified Code(s): J10.00 - Influenza due to other identified influenza virus with unspecified type of pneumonia (2) Respiratory failure with hypoxia: Status: Acute Qualifiers: Chronicity: acute Qualified Code(s): J96.01 - Acute respiratory failure with hypoxia (3) Thrombocytosis: Status: Acute (4) Hyponatremia: Status: Acute (5) Transaminitis: Status: Acute Reason for Visit Reason for Visit: Trouble Breathing Hospital Course Hospital Course Camila Menendez is a 45 year old female with no significant past medical history came in with chief complaint of worsening shortness of breath as well as central substernal chest pain. CTA chest with contrast: No pulmonary embolism, Scattered ground-glass airspace disease in both lungs. Hospital course as below: 1) Bilateral Pneumonia: Due to Influenza B, treated with Tamiflu 75mg po BID Received additionally 7 days of empiric piperacillin tazobactam and 8 days of IV azithromycin to cover for possibility of superadded bacterial infection. Continue Tamiflu for additional 5 days at hospital discharge to complete total 10 days of treatment MRSA PCR :Negative Covid PCR:Negative 11/06 Clinically improving during course of admission, initially upon admission was on high flow nasal cannula, titrated down to room air at rest. Patient had a home O2 evaluation prior to discharge, with exertion she requires 2 L/min, at rest saturation is well-maintained. Expect oxygen requirement to last over the next 1 to 2 months. Albuterol inhaler was also added at the time of discharge. She was additionally given a pulse oximeter at discharge so she can monitor saturation at home and return to the ER in case of worsening hypoxia (2) Respiratory failure with hypoxia: Respiratory failure with hypoxia secondary to influenza pneumonia now improving (3) Thrombocytosis: Reactive thrombocytosis (4) Hyponatremia: Hypovolemic hyponatremia:Resolved with IV hydration (5) Transaminitis: Likely secondary to dehydration, improved at the time of discharge Patient being discharged home today in stable condition to home. Follow-up with primary care physician in the next 4 to 7 days Physical Exam Narrative: EXAM NARRATIVE: GEN: Awake, alert and oriented, no acute distress CVS: S1S2 N RS: CTA B/L Abd: Soft, nt/nd , bs+ WIRER PASSENGER CAR: no focal neuro deficits Discharge Data Data Completed and Pending: Completed Studies During Hospitalization Category Date Time Status CT angio chest PE protcl [id number] Stat Cat Scan 11/06/20 16:[address] chest wo con 7 1250 Routine Cat Scan 11/11/20 08:51 Completed XR chest 1V anthony ble [id number] Routine Exams 11/08/20 15:01 Completed XR chest 1V anthony ble [id number] Routine Exams 11/10/20 06:00 Completed XR chest 1V anthony ble [id number] Stat Exams 11/06/20 16:33 Completed CV echo complete* [id number] Routine Ultrasound 11/07/20 17:56 Completed Pending at discharge Category Date Time Status MELL Screen w/ Ref jose raul Routine Lab 11/09/20 06:25 Results Labs from last 24 hours 11/13/20 11/13/20 11/09/20 05:32 05:32 06:25 WBC 4.5 RBC 4.24 Hgb 11.7 Hct 37.0 MCV 87.3 MCH 27.6 L MCHC 31.6 RDW 12.4 Plt Count 441 H MPV 9.3 Neut % (Auto) 52.5 Lymph % (Auto) 28.3 Grainger % (Auto) 11.5 Eos % (Auto) 5.5 Baso % (Auto) 0.7 Neut # (Auto) 2.37 Lymph # (Auto) 1.3 Grainger # (Auto) 0.5 Eos # (Auto) 0.3 Baso # (Auto) 0.0 Nucleated RBC % (a uto) 0 Nucleated RBCs # 0.0 Sodium 138 Potassium 3.8 Chloride 104 Carbon Dioxide 24 Anion Gap 13.8 BUN 11 Creatinine 0.6 GFR Calculation 107.2 Glucose 85 Calculated Osmolal ity 285 Calcium 8.4 L RSV Nasal Swab RSV Nasal Swab Int Cntl MELL Screen Negative Adenovirus (PCR) Human Metapneumovi r PCR Influenza A (RT-PC R) Influenza A (H1) P CR Influenza A (H3) P CR Influenza B (RT-PC R) Parainfluenzae Typ e 1 Parainfluenzae Typ e 2 Parainfluenzae Typ e 3 RSV Ab Comment Rhinovirus (PCR) 11/08/20 17:15 WBC RBC Hgb Hct MCV MCH MCHC RDW Plt Count MPV Neut % (Auto) Lymph % (Auto) Grainger % (Auto) Eos % (Auto) Baso % (Auto) Neut # (Auto) Lymph # (Auto) Grainger # (Auto) Eos # (Auto) Baso # (Auto) Nucleated RBC % (a uto) Nucleated RBCs # Sodium Potassium Chloride Carbon Dioxide Anion Gap BUN Creatinine GFR Calculation Glucose Calculated Osmolal ity Calcium RSV Nasal Swab Not detected RSV Nasal Swab Int Cntl Not detected MELL Screen Adenovirus (PCR) Not detected Human Metapneumovi r PCR Not detected Influenza A (RT-PC R) Not detected Influenza A (H1) P CR Not detected Influenza A (H3) P CR Not detected Influenza B (RT-PC R) Not detected Parainfluenzae Typ e 1 Not detected Parainfluenzae Typ e 2 Not detected Parainfluenzae Typ e 3 Not detected RSV Ab Comment see note Rhinovirus (PCR) Not detected Vitals: Last Vital Signs Temp 97.8 F 11/13/20 14:03 Pulse 67 11/13/20 14:03 Resp 15 11/13/20 14:03 BP 116/69 11/13/20 14:03 Pulse Ox 96 11/13/20 14:03 Discharge Plan Discharge Patient Disposition: Home Condition: Stable Prescriptions: New dextromethorphan-guaifenesin 10-100 mg/5 mL Syrup 10 ml PO Q4H 10 Days Qty: 600 RF: 0 benzonatate 100 mg Capsule 100 mg PO Q4H 15 Days Qty: 90 RF: 0 oseltamivir 75 mg Capsule 75 mg PO BID 5 Days Qty: 10 RF: 0 Continued pantoprazole [Protonix] 40 mg tablet,delayed release (DR/EC) 40 mg PO QAM RF: 0 gabapentin 300 mg capsule 600 mg PO TID RF: 0 hydroxyzine pamoate [Vistaril] 25 mg capsule 25 mg PO Q4H PRN (Reason: Anxiety) RF: 0 fluoxetine 40 mg capsule 40 mg PO QAM RF: 0 Dayquil Tab 1 - 2 tab PO PRN RF: 0 ProAir HFA 90 mcg/actuation Hfa Aerosol Inhaler 2 puff INHALATION Q4H PRN (Reason: Shortness Of Breath) 30 Days Qty: 1 RF: 2 Discontinued sulfamethoxazole-trimethoprim 800-160 mg tablet 1 tab PO BID Qty: 28 RF: 2 Discharge Orders: Discharge Order (Routine); Ordered 11/13/20 Ordered By: Chantal Sousa Other Ambulatory Orders: DME: Oxygen (Order) Location: None Selected Ordered By: Chantal Sousa Referrals: Rodolfo Pena MD [Primary Care Provider] - 11/20/20 11:30 am (follow up from influenza pneumonia ) Discharge Diet: Usual diet Discharge Activity: Resume usual activity Patient Instructions: Benzonatate (By mouth), Oseltamivir (By mouth), Dextromethorphan/Guaifenesin/Phenylephrine (By mouth), Influenza (DC), Opioid Safety, Using Oxygen at Home Activity Restrictions/Additional Instructions: Continue to monitor oxygen saturation at home. Bactrim has been discontinued on home medication list accidentally. Please continue to take Bactrim as prescribed from urology. Discharge Attestations Time Spent in Discharge Care*: greater than 30 min Specific Discharge Activities: educating patient, documenting/other paperwork and evaluating patient/reviewing data Quality Metrics Clinical Quality Measures During this hospital stay, did patient experience: None Coding Level of Care Code Acute Chg FW DC note Diagnoses Pneumonia J10.00 Pneumonia type: due to influenza A virus Laterality: bilateral Lung location: unspecified part of lung Respiratory failure with hypoxia J96.01 Chronicity: acute Thrombocytosis D47.3 Hyponatremia E87.1 Transaminitis R74.01
== END 2020-11-13 14:03 | disposition home or self-care (01) | DRG 193 ==
LOC: ER 16:37 → ICU 18:17 → MEDSURG 11-07 15:31
PROVIDERS: Admitting Provider Internal Medicine; Emergency Provider Family Medicine; PCP Family Medicine; Visit Provider Student in an Organized Health Care Education/Training Program
DX: J18.9 Pneumonia, unspecified organism (principal); J96.01 Acute respiratory failure with hypoxia; E87.1 Hypo-osmolality and hyponatremia; Z86.010 Personal history of colon polyps; Z87.440 Personal history of urinary (tract) infections; F17.210 Nicotine dependence, cigarettes, uncomplicated; D47.3 Essential (hemorrhagic) thrombocythemia; J10.01 Influenza due to other identified influenza virus with the same other identified influenza virus pneumonia
CPT/HCPCS: 36415; 36600; 71045; 71250; 71275; 80048; 80051; 80053; 80202; 81001; 82330; 82805; 83605; 83735; 83880; 84145; 84484; 85025; 85378; 86038; 86403; 86431; 87040; 87426; 87449; 87635; 87641; 87804; 93005; 93306; 94640; 96365; 96367; 96372; 96375; 99285; J0456; J0696; J1100; J1650; J1940; J2060; J2270; J2543; J2930; J3370; J7030; J7050; Q9967

== ENCOUNTER 2020-11-23 15:53 | Emergency (ER) | payer OTHER, SELFPAY ==
[2020-11-23 15:56] VITALS: BP 112/60; PULSE 84; RESP 16; TEMP 36.4; O2SAT 96; BMI 28.3
[2020-11-23] MEDS: sodium chloride 0.9% 1,000 ML 999 ML IV ×2 (16:12→19:32)
[2020-11-23 16:19] LABS: Basophils # 0.1 10^3/uL (0.0-0.1); Basophils % 0.7 %; Eosinophils % 0.5 %; Hematocrit 34.6 % (37.0-47.0); Hemoglobin 11.2 g/dL (11.5-15.3); Lymphocytes % 24.7 %; Mean Corpuscular HGB Conc 32.4 g/dL (30.0-36.0); Mean Corpuscular Hemoglobin 27.9 pg (28.0-34.0); Mean Corpuscular Volume 86.1 fL (81-99); Mean Platelet Volume 9.5 fL (7.4-10.4); Monocytes # 1.1 10^3/uL (0.2-0.9); Monocytes % 12.8 %; Neutrophils # 5.05 10^3/uL (1.8-7.7); Neutrophils % 61.1 %; Nucleated Red Blood Cells % 0 %; Platelet Count 425 10^3/cmm (130-400); Red Blood Count 4.02 10^6/uL (4.1-5.3); Red Cell Distribution Width 13.3 % (12.1-15.1); White Blood Count 8.3 10^3/uL (4.0-10.0)
--- NOTE | 2020-11-23 16:32 | ED_ITS ---
Documented by User: Quinton Fishman DO 11/24/20 08:07 HPI - Alcohol General: Chief Complaint: Alcohol Stated Complaint: ETOH Time Seen by Provider: 11/23/20 15:53 History of Present Illness: HPI narrative: 45-year-old female brought in by EMS. She was found unresponsive in the grass outside of a hotel. On arrival here she is unconscious she does respond to painful stimuli. She awakens and verbalizes response complaints about the stimuli but quickly becomes unresponsive again. She denied drinking alcohol she did admit to taking his Xanax. She does appear to be under the influence. She denies any pain or injury. Was not able to get anything further from her. MD complaint: alcohol intoxication Last drink: Unknown Recent trauma: No Associated symptoms: Deny abdominal pain, nausea, syncope or vomiting Review of Systems Const: Denies: fever(s), chills, body aches, change in appetite, fatigue or malaise ENMT: Denies: throat pain, ear or mastoid pain, nasal discharge or nasal congestion Card: Denies: syncope Resp: Denies: dyspnea, productive cough or non-productive cough GI: Denies: abdominal pain, nausea or vomiting : Denies: flank pain, difficulty voiding, dysuria, urinary frequency or urinary urgency Skin/Breast: Denies: rash or pruritus PFSH ED PFSH: Medical History Colon polyp Gastritis and duodenitis Microscopic hematuria Recurrent UTI Family History Mother Hypertension Alcoholism Diabetes Father Alcoholism Sister Alcoholism Grandfather Cancer colon cancer Denies family history of Anesthesia complication Bleeding disorder Social History Smoking and tobacco status: current every day smoker cigarettes Packs smoked per day: 1 Years cigarettes smoked: 30 Alcohol intake: never Marital status: Legally Current occupational status: unemployed History of recent travel: No Physical Exam Const: COMMON NORMALS: no acute distress GENERAL APPEARANCE: comfortable HENMT: COMMON NORMALS: normocephalic, atraumatic, hearing grossly normal bilaterally, external ears normal, EAC's normal, TM's normal bilaterally, Normal nasal mucous membranes and turbinates present, moist oral mucous membranes and oropharynx normal HEAD & SCALP: normocephalic and atraumatic NOSE: Normal nasal mucous membranes and turbinates present EXTERNAL EAR: Yes external ears normal EXTERNAL AUDITORY CANAL: EAC's normal TYMPANIC MEMBRANE: TM's normal bilaterally Eye: COMMON NORMALS: EOMs intact bilaterally, conjunctivae normal and no scleral icterus GENERAL EYE: decreased light reflex CONJUNCTIVA: Yes conjunctivae normal DIRECT OPHTHALMOSCOPY: Yes decreased light reflex Neck/C-Spine: COMMON NORMALS: full ROM, no lymphadenopathy, supple and no JVD Resp: COMMON NORMALS: normal respiratory effort, No retractions, No use of accessory muscles and clear to auscultation bilaterally AUSCULTATION: clear to auscultation bilaterally Cardio: COMMON NORMALS: no JVD, regular rate, regular rhythm and No murmurs present (Cardio) RATE: regular rate RHYTHM: regular rhythm GI: COMMON NORMALS: Soft to palpation and No hepatosplenomegaly present AUSCULTATION: Yes normoactive bowel sounds PALPATION: Yes Soft to palpation, No Tenderness to palpation present (GI), No Guarding due to palpation present (GI) and Yes No hepatosplenomegaly present Extremity: COMMON NORMALS: normal to inspection, capillary refill normal, no clubbing, cyanosis or edema, no calf tenderness and no pedal edema Skin: COMMON NORMALS: no rashes or lesions noted GENERAL SKIN EXAM: no rashes or lesions noted Course Vital Signs: Vital signs: Vital Signs Temperature 97.6 F 11/23/20 15:56 Pulse Rate 88 11/23/20 20:34 Respiratory Rate 18 11/23/20 20:34 Blood Pressure 128/95 11/23/20 20:34 Pulse Oximetry 98 11/23/20 20:34 MDM - Alcohol MDM Narrative: Medical decision making narrative: Labs pending care turned over to Dr. Musa at change of shift initial EtOH is negative. Suspect methamphetamine use as patient has been positive in the past likely exacerbated by the Xanax use. Discussed Dr. Musa see his notes for final diagnosis and disposition Lab Data: Labs: Lab Results 11/23/20 11/23/20 11/23/20 Range/Units 16:08 16:08 18:39 WBC 8.3 (4.0-10.0) 10^3/ uL RBC 4.02 L (4.1-5.3) 10^6/u L Hgb 11.2 L (11.5-15.3) g/dL Hct 34.6 L (37.0-47.0) % MCV 86.1 (81-99) fL MCH 27.9 L (28.0-34.0) pg MCHC 32.4 (30.0-36.0) g/dL RDW 13.3 (12.1-15.1) % Plt Count 425 H (130-400) 10^3/c mm MPV 9.5 (7.4-10.4) fL Neut % (Auto) 61.1 % Lymph % (Auto) 24.7 % [place] % (Auto) 12.8 % Eos % (Auto) 0.5 % Baso % (Auto) 0.7 % Neut # (Auto) 5.05 (1.8-7.7) 10^3/u L Lymph # (Auto) 2.0 (0.8-4.8) 10^3/u L [place] # (Auto) 1.1 H (0.2-0.9) 10^3/u L Eos # (Auto) 0.0 (0.0-0.8) 10^3/u L Baso # (Auto) 0.1 (0.0-0.1) 10^3/u L Nucleated RBC % (a uto) 0 % Nucleated RBCs # 0.0 /100WBC Sodium 141 (136-145) mmol/L Potassium 3.6 (3.5-5.1) mmol/L Chloride 105 (98-107) mmol/L Carbon Dioxide 25 (22-29) mmol/L Anion Gap 14.6 (5-19) BUN 8 (6-20) mg/dL Creatinine 0.7 (0.5-0.9) mg/dL GFR Calculation 89.7 L (90-130) mL/min Glucose 98 (65-115) mg/dL Calculated Osmolal ity 290 (285-295) mOsm/k g Calcium 8.7 (8.5-10.5) mg/dL Total Bilirubin 0.5 (0.15-1.2) mg/dL AST 26 (0-32) U/L ALT 22 (0-33) U/L Alkaline Phosphata se 87 (35-105) IU/L Total Protein 6.1 L (6.6-8.7) g/dL Albumin 3.7 (3.5-5.2) g/dL Globulin 2.4 (1.3-4.6) g/dL Urine Opiates Scre en Negative (Negative) ng/mL Ur Barbiturates Sc reen Negative (Negative) ng/mL Ur Phencyclidine S crn Negative (Negative) ng/mL Ur Amphetamines Sc reen Positive H (Negative) ng/mL U Benzodiazepines Scrn Negative (Negative) ng/mL Urine Cocaine Scre en Negative (Negative) ng/mL U Marijuana (THC) Screen Positive H (Negative) ng/mL Ethyl Alcohol < 10 (0-10) mg/dL Discharge Plan Discharge Patient Disposition: Home Clinical Impression: Drug abuse Condition: Stable Prescriptions: No Action pantoprazole [Protonix] 40 mg tablet,delayed release (DR/EC) 40 mg PO QAM RF: 0 gabapentin 300 mg capsule 600 mg PO TID RF: 0 hydroxyzine pamoate [Vistaril] 25 mg capsule 25 mg PO Q4H PRN (Reason: Anxiety) RF: 0 fluoxetine 40 mg capsule 40 mg PO QAM RF: 0 Dayquil Tab 1 - 2 tab PO PRN RF: 0 albuterol sulfate [ProAir HFA] 90 mcg/actuation Hfa Aerosol Inhaler 2 puff INHALATION Q4H PRN (Reason: Shortness Of Breath) 30 Days Qty: 1 RF: 2 benzonatate 100 mg capsule 100 mg PO Q4H PRN (Reason: Cough) RF: 0 Discharge Orders: Discharge ED (Routine); Ordered 11/23/20 Ordered By: Messi Musa Referrals: Rodolfo Pena MD [Primary Care Provider] - 1-3 days Discharge Diet: Advance as tolerated Discharge Activity: Resume usual activity Patient Instructions: Polysubstance Abuse (ED) Coding 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 of Care 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 Documented by User: Messi Musa MD 11/23/20 20:43 HPI - Alcohol General: Chief Complaint: Alcohol Stated Complaint: ETOH Time Seen by Provider: 11/23/20 15:53 PFSH ED PFSH: Medical History Colon polyp Gastritis and duodenitis Microscopic hematuria Recurrent UTI Family History Mother Hypertension Alcoholism Diabetes Father Alcoholism Sister Alcoholism Grandfather Cancer colon cancer Denies family history of Anesthesia complication Bleeding disorder Social History Smoking and tobacco status: current every day smoker cigarettes Packs smoked per day: 1 Years cigarettes smoked: 30 Alcohol intake: never Marital status: Legally Current occupational status: unemployed History of recent travel: No Course Vital Signs: Vital signs: Vital Signs Temperature 97.6 F 11/23/20 15:56 Pulse Rate 88 11/23/20 20:34 Respiratory Rate 18 11/23/20 20:34 Blood Pressure 128/95 11/23/20 20:34 Pulse Oximetry 98 11/23/20 20:34 MDM - Alcohol MDM Narrative: Medical decision making narrative: Patient presents here with drug use including Xanax. She is now awake and alert and requesting discharge. Patient's family member came up and took her. She has been well-appearing here and blood work is all normal. She is stable for discharge and return if worsening. Lab Data: Labs: Lab Results 11/23/20 11/23/20 11/23/20 Range/Units 16:08 16:08 18:39 WBC 8.3 (4.0-10.0) 10^3/ uL RBC 4.02 L (4.1-5.3) 10^6/u L Hgb 11.2 L (11.5-15.3) g/dL Hct 34.6 L (37.0-47.0) % MCV 86.1 (81-99) fL MCH 27.9 L (28.0-34.0) pg MCHC 32.4 (30.0-36.0) g/dL RDW 13.3 (12.1-15.1) % Plt Count 425 H (130-400) 10^3/c mm MPV 9.5 (7.4-10.4) fL Neut % (Auto) 61.1 % Lymph % (Auto) 24.7 % [place] % (Auto) 12.8 % Eos % (Auto) 0.5 % Baso % (Auto) 0.7 % Neut # (Auto) 5.05 (1.8-7.7) 10^3/u L Lymph # (Auto) 2.0 (0.8-4.8) 10^3/u L [place] # (Auto) 1.1 H (0.2-0.9) 10^3/u L Eos # (Auto) 0.0 (0.0-0.8) 10^3/u L Baso # (Auto) 0.1 (0.0-0.1) 10^3/u L Nucleated RBC % (a uto) 0 % Nucleated RBCs # 0.0 /100WBC Sodium 141 (136-145) mmol/L Potassium 3.6 (3.5-5.1) mmol/L Chloride 105 (98-107) mmol/L Carbon Dioxide 25 (22-29) mmol/L Anion Gap 14.6 (5-19) BUN 8 (6-20) mg/dL Creatinine 0.7 (0.5-0.9) mg/dL GFR Calculation 89.7 L (90-130) mL/min Glucose 98 (65-115) mg/dL Calculated Osmolal ity 290 (285-295) mOsm/k g Calcium 8.7 (8.5-10.5) mg/dL Total Bilirubin 0.5 (0.15-1.2) mg/dL AST 26 (0-32) U/L ALT 22 (0-33) U/L Alkaline Phosphata se 87 (35-105) IU/L Total Protein 6.1 L (6.6-8.7) g/dL Albumin 3.7 (3.5-5.2) g/dL Globulin 2.4 (1.3-4.6) g/dL Urine Opiates Scre en Negative (Negative) ng/mL Ur Barbiturates Sc reen Negative (Negative) ng/mL Ur Phencyclidine S crn Negative (Negative) ng/mL Ur Amphetamines Sc reen Positive H (Negative) ng/mL U Benzodiazepines Scrn Negative (Negative) ng/mL Urine Cocaine Scre en Negative (Negative) ng/mL U Marijuana (THC) Screen Positive H (Negative) ng/mL Ethyl Alcohol < 10 (0-10) mg/dL Discharge Plan Discharge Patient Disposition: Home Clinical Impression: Drug abuse Condition: Stable Prescriptions: No Action pantoprazole [Protonix] 40 mg tablet,delayed release (DR/EC) 40 mg PO QAM RF: 0 gabapentin 300 mg capsule 600 mg PO TID RF: 0 hydroxyzine pamoate [Vistaril] 25 mg capsule 25 mg PO Q4H PRN (Reason: Anxiety) RF: 0 fluoxetine 40 mg capsule 40 mg PO QAM RF: 0 Dayquil Tab 1 - 2 tab PO PRN RF: 0 albuterol sulfate [ProAir HFA] 90 mcg/actuation Hfa Aerosol Inhaler 2 puff INHALATION Q4H PRN (Reason: Shortness Of Breath) 30 Days Qty: 1 RF: 2 benzonatate 100 mg capsule 100 mg PO Q4H PRN (Reason: Cough) RF: 0 Discharge Orders: Discharge ED (Routine); Ordered 11/23/20 Ordered By: Messi Musa Referrals: Rodolfo Pena MD [Primary Care Provider] - 1-3 days Discharge Diet: Advance as tolerated Discharge Activity: Resume usual activity Patient Instructions: Polysubstance Abuse (ED) Coding 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
[2020-11-23 16:34] LABS: Alanine Aminotransferase 22 U/L (0-33); Albumin Level 3.7 g/dL (3.5-5.2); Alkaline Phosphatase 87 IU/L (35-105); Aspartate Amino Transferase 26 U/L (0-32); Blood Urea Nitrogen 8 mg/dL (6-20); Calcium 8.7 mg/dL (8.5-10.5); Carbon Dioxide 25 mmol/L (22-29); Chloride 105 mmol/L (98-107); Globulin 2.4 g/dL (1.3-4.6); Glomerular Filtration Rate 89.7 mL/min (90-130); Glucose 98 mg/dL (65-115); Osmolality Calculated 290 mOsm/kg (285-295); Sodium 141 mmol/L (136-145); Total Bilirubin 0.5 mg/dL (0.15-1.2); Total Protein 6.1 g/dL (6.6-8.7)
[2020-11-23 16:36] LABS: Alcohol Level < 10 mg/dL (0-10)
--- NOTE | 2020-11-23 16:36 | CTR_ITS ---
PROCEDURE INFORMATION: Exam: CT Head Without Contrast Exam date and time: 11/23/2020 4:58 PM Age: 45 years old Clinical indication: Syncope and collapse. Patient found unresponsive. TECHNIQUE: Imaging protocol: Computed tomography of the head without contrast. Radiation optimization: All CT scans at this facility use at least one of these dose optimization techniques: automated exposure control; mA and/or kV adjustment per patient size (includes targeted exams where dose is matched to clinical indication); or iterative reconstruction. COMPARISON: No relevant prior studies available. RADIATION DOSE METRICS: Total DLP (mGy-cm): 836.07 FINDINGS: Brain: No acute intracranial hemorrhage. No mass, mass effect or midline shift. There is no evidence of acute large vessel infarct. The subcortical and periventricular white matter is normal in attenuation. The posterior fossa is grossly unremarkable; however, it is partially obscurred by beam hardening artifact. Cerebral ventricles: The ventricles are normal in configuration. Paranasal sinuses: The visualized paranasal sinuses are clear. Mastoid air cells: No mastoid effusion. Orbital cavity: The visualized orbits are unremarkable. Bones/joints: No acute fracture is seen. CT/CT head wo con* [id number] IMPRESSION: No acute intracranial abnormality. Radiation Dose CTDIVOL = (mGy): DLP = 836.07 (mGy-cm)
[2020-11-23 16:37] LABS: Anion Gap 14.6 (5-19); Potassium 3.6 mmol/L (3.5-5.1)
[2020-11-23 18:56] LABS: Amphetamines Screen Urine Positive (Negative); Barbiturates Screen Urine Negative (Negative); Benzodiazepines Screen Urine Negative (Negative); Cocaine Screen Urine Negative (Negative); Opiate Screen Urine Negative (Negative); PCP Screen Urine Negative (Negative); THC Screen Urine Positive (Negative)
[2020-11-23 19:08] VITALS: BP 105/64; PULSE 84; RESP 18; O2SAT 94
--- NOTE | 2020-11-23 19:27 | PC.NURSE ---
Assessment is not completed by prior nurse and is leaving AMA at this time.
[2020-11-23 20:34] VITALS: BP 128/95; PULSE 88; RESP 18; O2SAT 98
== END 2020-11-23 20:36 | disposition home or self-care (01) ==
PROVIDERS: Family Medicine; Emergency Provider Emergency Medicine; PCP Family Medicine
DX: F19.10 Other psychoactive substance abuse, uncomplicated (principal); F17.210 Nicotine dependence, cigarettes, uncomplicated
CPT/HCPCS: 70450; 80053; 80306; 80307; 85025; 96360; 96361; 99283; J7030